=== PATIENT | female | born 1965 | race Caucasian/White ===

== ENCOUNTER 2017-06-23 13:34 | Inpatient (IN) | payer OTHER, MEDICAID ==
[~2017-06-23] VITALS: Ht 167.6 cm; Wt 114.4 kg
[~2017-06-23 13:34] MED LIST: ABILIFY20 MG PO; ABILIFY30 MG PO; ALBUTEROL2.5 MG/0.1 INH; ALLEGRA ALLERGY60 MG PO; ASPIRIN EC325 M1 PO; ASPIRIN EC81 M1 PO; ATIVAN0.5 M1 PO; AUGMENTIN; AZO95 MG PO; BACLOFEN 10MG T10 MG PO; BACLOFEN20 MG PO; BACTROBAN CREAM30 G1 TOP; BUTRANS1 EAC1 TOP; BUTRANS1 EAC1 TRANSDERM; CELEXA 20 MG TA20 M1 PO; CENTRUM ADULTS1 EACH PO; CIPROFLOXACIN500 M1 PO; CLARITIN10 M2 PO; CLEOCIN HCL150 MG PO; CLEOCIN HCL300 MG PO; CLONAZEPAM 0.50.5 M1 PO; CYMBALTA20 MG PO; CYMBALTA60 MG PO; ENDOCET 5-3251 EACH PO; EPIPEN 2-P0.3 MG/0.3 IM; EPIPEN0.3 MG/0.3 IM; FENTANYL PA25 MCG/HR TRANSDERM; FLEXERIL PO; FLOMAX0.4 MG PO; FLONASE 0.05%50 MCG NS; FLOVENT HFA 2220 MC1; FLOVENT HFA 2220 MCG INH; HYDROCHLOROTHIA25 M1 PO; HYDROCODON-ACE1 EAC7 PO; HYDROCODONE-AP1 EAC6 PO; INVEGA SUS234 MG/1.5 IM; INVEGA6 MG PO; INVEGA9 MG IM; IPRATROPIUM SPRAY; KEFLEX250 M1 PO; KEPPRA 500 MG500 M1 PO; KLONOPIN0.5 MG PO; LEVAQUIN 500 M500 M2 PO; LEVO-T50 MCG PO; LIDODERM 5%1 PATCH TOP; LINZESS145 MCG PO; LIORESAL 10 MG10 MG PO; LISINOPRIL-HCT1 EACH PO; LISINOPRIL10 MG PO; LYRICA PO; LYRICA100 MG PO; LYRICA150 MG PO; LYRICA225 MG PO; MEDROLDOSEPACK PO; MOBIC15 MG PO; MODAFINIL100 MG PO; Metformin PO; NEURONTIN800 MG PO; NORCO 10-325 T1 EACH PO; NORCO 5-325 TA1 EACH PO; NORCO 7.5-3251 EACH; NORFLEX100 MG PO; NORVASC10 MG PO; NORVASC2.5 MG PO; NUVIGIL150 MG PO; NUVIGIL50 MG PO; OXYCODONE HCL15 MG PO; PERCOCET 10-321 EACH PO; PERCOCET 5-3251 EACH PO; PREDNISONE50 MG PO; PREMARIN1.25 MG PO; PRIMROSE PO; PRINIVIL5 MG PO; PROVIGIL 200 M200 M1 PO; PYRIDIUM200 MG PO; ROBAXIN 750 MG750 M1 PO; SEROQUEL XR 20200 MG PO; SEROQUEL XR PO; SIMVASTATIN40 MG PO; TESSALON200 MG PO; TINIDAZOLE500 MG PO; TOPAMAX 100 MG100 MG PO; TOPROL XL25 MG PO; TOPROL XL50 MG PO; TRAMADOL 50 MG50 MG PO; ULTRAM 50MG TAB50 MG PO; VALIUM10 MG PO; VICODIN 5-5001 EACH PO; XALATAN2.5 ML OPHTHALMIC; XANAX 0.5 MG0.5 M1 PO; ZANAFLEX4 M1 PO; ZANAFLEX4 MG PO; ZESTRIL PO; ZESTRIL10 MG PO; ZOCOR40 MG PO; ZOFRAN ODT4 MG SUBLING; ZOFRAN4 MG PO; ZYRTEC10 M2 PO; [UNRECOGNIZED DRUG - OTHER] PO; [UNRECOGNIZED DRUG - REMARK] TOP; metformin
[2017-06-23 13:37] VITALS: BP 148/67
[2017-06-23 13:47] LABS: BE -6.6 mmol/L (-2 to +3); HCO3 20.8 mmol/L (22.0-26.0); PCO2 48.3 mmHg (35.0-45.0)
[2017-06-23 13:50] LABS: PO2 447.9 mmHg (75.0-100.0); pH 7.252 (7.340-7.450)
[2017-06-23] MEDS ORDERED: KEPPRA 500 MG500 M1 PO (13:58)
[2017-06-23] MEDS ORDERED: MAGOX 400400 MG PO (13:58)
[2017-06-23] MEDS ORDERED: ALLEGRA ALLERG180 MG PO (13:59)
[2017-06-23] MEDS ORDERED: ARTIFICIAL TEA1 EACH OPHTHALMIC (14:00)
[2017-06-23] MEDS ORDERED: CYMBALTA30 MG PO (14:00)
[2017-06-23] MEDS ORDERED: ASPIR 8181 MG PO (14:00)
[2017-06-23] MEDS ORDERED: COLESTIPOL HCL1 G1 PO (14:01)
[2017-06-23] MEDS ORDERED: OMEGA-31000 M1 PO (14:01)
[2017-06-23 14:06] LABS: MCH 30.1 pg (26.0-34.0); MCHC 32.6 g/dL (28.0-37.0); MCV 92.4 fL (80.0-100.0); MPV 8.8 fl. (7.2-11.1); NUCLEATED RBCS 0 /100WBC; PLATELET COUNT* 187 thou/uL (150-400); RBC 4.65 mil/uL (4.20-5.00); RDW-CV 15.3 % (10.5-14.5); WBC 11.8 thou/uL (4.0-11.0)
[2017-06-23 14:19] LABS: ANION GAP 13 mmol/L (7-16); BUN 39 mg/dL (7-18); CALCIUM 8.7 mg/dL (8.5-10.1); CHLORIDE 109 mmol/L (98-107); CO2 23 mmol/L (21-32); CREATININE 3.9 mg/dL (0.6-1.3); GLUCOSE 110 mg/dL (70-99); POTASSIUM 4.3 mmol/L (3.5-5.1); SODIUM 145 mmol/L (136-145)
[2017-06-23 14:24] LABS: APTT 24.7 Seconds (25.0-31.3); INR 1.1; PROTIME 10.6 Seconds (9.20-11.50)
[2017-06-23 14:38] LABS: ALBUMIN 3.6 g/dL (3.4-5.0); ALKALINE PHOSPHATASE 151 U/L (46-116); CK-MB MASS 8.3 ng/mL (<0.5-3.6); NT-PRO BRAIN NAT PEPTIDE 97 pg/mL (<300); SGOT 40 U/L (15-37); SGPT 30 U/L (30-65); TOTAL BILIRUBIN 0.3 mg/dL (<0.1-1.0); TOTAL PROTEIN 7.6 g/dL (6.4-8.2); TROPONIN-I LEVEL <0.06 ng/mL (<0.06)
[2017-06-23 14:48] LABS: ABSOLUTE EOSINOPHILS 0.1 thou/uL (0.0-0.7); ABSOLUTE LYMPHOCYTES 1.4 thou/uL (0.8-5.3); ABSOLUTE MONOCYTES 1.1 thou/uL (0.0-1.2); ABSOLUTE NEUTROPHILS 9.2 thou/uL (1.6-8.1); HYPOCHROMASIA 1+; PLATELET ESTIMATE DECREASED
--- NOTE | 2017-06-23 15:00 | NUR ---
PT VERSED WAS INCREASED TO 2MG/HR
[2017-06-23 15:03] LABS: URINE BILIRUBIN NEGATIVE (Negative); URINE BLOOD TRACE (Negative); URINE CLARITY CLEAR; URINE COLOR YELLOW; URINE GLUCOSE-RANDOM NEGATIVE (Negative); URINE KETONES NEGATIVE (Negative); URINE LEUKOCYTES-REFLEX NEGATIVE (Negative); URINE NITRITE-REFLEX NEGATIVE (Negative); URINE PROTEIN 1+ (Negative); URINE SPECIFIC GRAVITY 1.025 (1.005-1.030); URINE UROBILINOGEN 0.2 E.U./dl (0.2-1.0)
--- NOTE | 2017-06-23 15:25 | NUR ---
PT VERSED WAS INCREASED TO 3MG/HR
[2017-06-23 15:41] LABS: AMP/METHAMP Negative (Negative); BARBITURATES Negative (Negative); BENZODIAZEPINES Negative (Negative); COCAINE Negative (Negative); METHADONE Negative (Negative); OPIATES Negative (Negative); PCP Negative (Negative); THC Negative (Negative)
[2017-06-23 16:00] VITALS: BP 153/81
--- NOTE | 2017-06-23 16:17 | NUR ---
VERSED WAS INCREASED TO 2MG/HR
[2017-06-23 16:31] VITALS: BP 138/75
[2017-06-23 18:00] VITALS: BP 137/76
--- NOTE | 2017-06-23 18:14 | NUR ---
PT ADMITTED FROM ED. FAMILY NOT PRESENT AT ADMISSION. NOW HERE. REPORTS PT HAD NOT BEEN ACTING LIKE SELF FOR TWO DAYS, AND SAID SHE DIDN'T FEEL GOOD. PT WAS STARTED ON NEW BLOOD PRESSURE MED YESTERDAY - UNSURE WHAT NAME OF MED IS. ALSO SAID PT SPEECH WAS SLURRED FOR MOST OF DAY YESTERDAY AND TODAY. HEARD PT FALL TO FLOOR AT HOME AND FOUND PT SITTING UP ON FLOOR SHAKING. PT COULD BARELY SPEAK AND UNABLE TO FOLLOW COMMANDS. CALLED EMS. PT UNRESPONSIVE ON ARRIVAL TO ED. PT INTUBATED, L IJ TRIPLE LUMEN CENTRAL LINE. PT APPEARS COMFORTABLE CURRENTLY, VERSED GTT AT 5MG/HR, FENTANYL GTT @ 25MCG/HR, NS AT 100ML/HR. TEMP PROBE TRACY TO DD WITH YELLOW CLOUDY URINE. OGT LIS.
--- NOTE | 2017-06-23 20:43 | NUR ---
PT REMAINS ON VENTILATOR, NPO, SPOKE WTIH DR SINCLAIR VIA TELEPHONE KEPPRA PO SCHEDULED CLARIFICATION ORDER, NEW ORDERS RECEIVED TO CHANGE SCHEDULED KEPPRA 500MG PO BID TO IV WITH SAME DOSE AND SCHEDULED TIMES.
[2017-06-23 21:32] VITALS: BP 154/74
--- NOTE | 2017-06-23 23:35 | NUR ---
OG AT 45CM, NO AIR POP NOTED, REPOSITIONED, STAT KUB OBTAINED, KUB RESULTS-TIP OF OG IN GASTRIC ANTUM, STARTED LIS.
[2017-06-24] VITALS (16 sets, daily range): BP systolic 94–167; BP diastolic 44–78
[2017-06-24 04:38] LABS: ABSOLUTE LYMPHOCYTES 0.5 thou/uL (0.8-5.3); ABSOLUTE MONOCYTES 0.4 thou/uL (0.0-1.2); ABSOLUTE NEUTROPHILS 7.4 thou/uL (1.6-8.1); BASOPHILS 0.2 %; HEMATOCRIT 38.5 % (37.0-47.0); HEMOGLOBIN 12.7 gm/dL (12.0-15.0); LYMPHOCYTES 5.9 %; MCH 30.6 pg (26.0-34.0); MCHC 32.9 g/dL (28.0-37.0); MCV 92.8 fL (80.0-100.0); MONOCYTES 4.5 %; MPV 8.5 fl. (7.2-11.1); NUCLEATED RBCS 0 /100WBC; PLATELET COUNT* 164 thou/uL (150-400); POLYS 89.4 %; RBC 4.15 mil/uL (4.20-5.00); RDW-CV 15.6 % (10.5-14.5); WBC 8.3 thou/uL (4.0-11.0)
[2017-06-24 05:02] LABS: CREATININE 4.7 mg/dL (0.6-1.3); POTASSIUM 4.5 mmol/L (3.5-5.1)
--- NOTE | 2017-06-24 08:30 | NUR ---
ASSUMED CARE OF PATIENT AT 0715. PATIENT IS ON VENTILATOR, FENTANYL AND VERSED GTTS. PATIENT IS NOT MAKING MUCH RESPONSE, DECREASING SEDATION AT THIS TIME. AT BEDSIDE AND WANTS TO SPEAK WITH ALL DOCTORS TODAY. NO APPARENT PAIN, GOALS ARE PAIN CONTROL, Q2H TURNS FOR SKIN INTEGRITY, MAINTAIN SATS ABOVE 92%. BED IN LOWEST POSITION, CALL LIGHT IN REACH, INSURANCE MARKETING SPECIALIST IN PLACE.
[2017-06-24 09:23] LABS: BE -9.6 mmol/L (-2 to +3); HCO3 15.6 mmol/L (22.0-26.0); PCO2 32.5 mmHg (35.0-45.0); PO2 93.4 mmHg (75.0-100.0)
--- NOTE | 2017-06-24 09:36 | EKG ---
[place] [address] ELECTROCARDIOGRAM REPORT Name: GORDON RAMIREZSA FARMER Room: [address] ADM IN M.R.#: [id number] Admission: 06/23/17 Attend Phys: Mikael Guerin MD Discharge: Date of : 63 Report #: [id number] THIS REPORT FOR: //name// [facility] ED Test Date: 2017-06-23 Test Time: 14:57:12 Pat Name: DION RAMIREZ Department: Room: [facility] Gender: F Offset Second Press Operator: MAXIMINO Hollis : 1965 Requested By: Devendra Shah Order Number: [id number] MD: Sheldon Hull Measurements Intervals [place] Rate: 75 P: 50 ND: 149 QRS: 69 QRSD: 107 T: 66 QT: 426 QTc: 476 Interpretive Statements Sinus rhythm Probable left atrial enlargement Nonspecific T abnormalities, lateral leads Borderline prolonged QT interval Compared to ECG 11/27/2016 13:11:04 T-wave abnormality now present Electronically Signed On 06-24-2017 9:36:43 CDT by Sheldon Hull [email or web address] <ELECTRONICALLY SIGNED> By: Sheldon Hull MD, FAC 06/24/17 0936 1457 1457 Sheldon Hull MD, [facility] /EPI
--- NOTE | 2017-06-24 09:46 | CON ---
[address] [address] CONSULTATION Name: DION RAMIREZ Room: [address] IN M.R.#: [id number] Admission: 06/23/17 Attend Phys: Mikael Guerin MD Discharge: Date of : 63 Report #: [id number] THIS REPORT FOR: //name// CC: Mikael Hadley HISTORY OF PRESENT ILLNESS: The patient was intubated and sedated at the time of my evaluation. She is a 52-year-old female patient who was found unresponsive at home. Her was at the bedside and he provided part of the history. I reviewed the medical record. He reported that earlier in the week, she had high blood pressure. She has taken blood pressure medication. The second day, her blood pressure was low, although she was not feeling dizzy, but she had some tiredness and fatigue. Yesterday, he found her unresponsive and gurgling at home, brought in by EMS. It was felt that she has some twitching movements suggestive of seizure. Apparently, they tried her on nonrebreather, but she was nonresponsive and she was intubated. When I saw her today, she was on Versed and fentanyl. She did not get the sedation vacation yet. Reviewing her medical record, she had reported history of seizures in the past. Her reported that she smoked in the past, but she quit 11 years ago. She has some inhaler that she uses on and off at home, but she is not on any oxygen and she does not carry a diagnosis of lung disease. The RT today reported some increasing secretions. PAST MEDICAL HISTORY: History of hypertension, hyperlipidemia, anxiety, depression, fibromyalgia, herniated disk, history of knee infection, history of schizophrenia, seizures. PAST SURGICAL HISTORY: Include surgery in the right foot, bilateral knee surgery, hysterectomy, sinus surgery, appendectomy, gallbladder surgery. FAMILY HISTORY: Noncontributory. SOCIAL HISTORY: Ex-smoker, quit 11 years ago. Does not drink alcohol excessively, does not abuse drugs. Lives with her . HOME MEDICATIONS: She is on Keppra, magnesium supplement, aspirin, Cymbalta, artificial tears. She has EpiPen at home. She is on albuterol inhaler. She is on levothyroxine, Topamax, baclofen. REVIEW OF SYSTEMS: At this point, unobtainable due to the patient's condition. PHYSICAL EXAMINATION: VITAL SIGNS: On examination, she is on the vent, O2 saturation more than 90%, blood pressure of 137/76, pulse of 81, temperature 37.4. GENERAL: Overweight lady, intubated, on sedation, looking comfortable, [place] [address] CONSULTATION Name: DION RAMIREZ Room: [address] IN .R.#: [id number] Admission: 06/23/17 Attend Phys: Mikael Guerin MD Discharge: Date of : 63 Report #: [id number] HEENT: Head normocephalic, atraumatic. Pupils reactive to light. Extraocular movements intact. External ear looks okay and normal. ORAL CAVITY: Moist mucous membrane with ET tube in place. NECK: Supple. No palpable lymph node. CHEST: Good air movement heard bilaterally. No added sounds. HEART: S1, S2; no murmur. ABDOMEN: Benign, soft, lax, nontender, positive bowel sounds. No masses felt. EXTREMITIES: Lower extremity: No edema, no calf tenderness. SKIN: Normal for age and race, no rash. PSYCHIATRIC: Mood and affect could not be evaluated. NEUROLOGIC: She is on sedation, could not be evaluated. LABORATORY DATA: Her ABGs prior to intubation, 7.25/48/447 on 15 liters; however, we are getting followup ABGs. Her white blood count is 8.3, hemoglobin of 12.7, platelet of 164. INR of 1.1, creatinine of 4.7, potassium 4.5, BUN of 42. Sodium 146. BNP was not elevated. She had multiple imaging including CT scan of the head that did not show acute pathology. Her chest x-ray overall did not show infiltrate and consolidation, with ET tube and central line in place. IMPRESSION: 1. Acute respiratory failure. 2. Encephalopathy, intubated for airway protection. 3. Possible seizures. 4. History of seizure disorder. 5. Acute renal failure, possible chronic renal failure. 6. Questionable aspiration. PLAN: At this point, her chest x-ray is clear. We will need to follow her chest x-ray while she is intubated. We will do followup ABG today and adjust the vent accordingly. She is on assist control ventilation but the tidal volume was noted to be high, she is on scheduled nebulization treatment and she is on steroids, in a day or 2 we will start weaning the steroids down. Awaiting Neurology evaluation. Once her mental status is better, we will start the weaning process. Thank you for the consult. <ELECTRONICALLY SIGNED> By: Pritesh Lam MD 06/24/17 0946 0858 [id number] aLm MD /christine
--- NOTE | 2017-06-24 18:41 | NUR ---
PATIENT HAS SOMEWHAT PROGRESSED WELL TOWARDS GOALS. UNABLE TO DO SEDATION VACATION TODAY, DECREASED SEDATION AND PATIENT WAS VERY RESTLESS AND HEART RATE JUMPED. WILL BE BACK IN THE MORNING, HAS BEEN AT BEDSIDE MOST OF THE DAY. DOCTORS UPDATED . PATIENTS NURSE PRACTIONER CALLED AND SAID THAT SHE HAS BEEN TAKING OVER THE COUNTER DIET PILLS, CLAIMS SHE IS TAKING FENTRAMINE, BUT THAT IS NOT AN OVER THE COUNTER MED. UNSURE WHAT DIET PILLS SHE IS TAKING OR IF THAT IS WHAT CAUSED THE REACTION. SHE ALSO STARTED TAKING LISINOPRIL HCTZ DIRECTED FOR 2 DOSES AND DROPPED HER PRESSURE SIGNIFICANTLY. UNSURE IF KNOWS ABOUT DIET PILLS. BED IN LOWEST POSITION, MOTOR VEHICLE DISPATCHER IN PLACE. BED ALARM ON.
[2017-06-25] VITALS (19 sets, daily range): BP systolic 102–153; BP diastolic 46–76
[2017-06-25 04:48] LABS: HEMATOCRIT 37.4 % (37.0-47.0); HEMOGLOBIN 12.4 gm/dL (12.0-15.0); MCH 30.8 pg (26.0-34.0); MCHC 33.1 g/dL (28.0-37.0); MCV 93.1 fL (80.0-100.0); MPV 9.2 fl. (7.2-11.1); RBC 4.02 mil/uL (4.20-5.00); RDW-CV 15.4 % (10.5-14.5); WBC 10.8 thou/uL (4.0-11.0)
[2017-06-25 04:53] LABS: ALBUMIN 2.8 g/dL (3.4-5.0); CALCIUM 8.1 mg/dL (8.5-10.1); POTASSIUM 4.6 mmol/L (3.5-5.1); TOTAL BILIRUBIN 0.2 mg/dL (<0.1-1.0); TOTAL PROTEIN 6.7 g/dL (6.4-8.2)
[2017-06-25 05:31] LABS: CREATININE 5.8 mg/dL (0.6-1.3)
--- NOTE | 2017-06-25 06:57 | NUR ---
PROGESSING TOWARD GOALS. PT REMAINS STABLE ON VENTILATOR, SEDATION TITRATED DOWN IN PREPARATION FOR WEANING TRIAL THIS AM. PT IS AROUSABLE TO VERBAL STIMULI. VSS. COMPLETE BED BATH GIVEN, HAIR SHAMPOOED AND BRAIDED. PT HAS BEEN TURNED Q2HR THROUGHOUT THE SHIFT.
[2017-06-25 08:58] LABS: BE -8.8 mmol/L (-2 to +3); HCO3 17.2 mmol/L (22.0-26.0); PCO2 37.6 mmHg (35.0-45.0); PO2 105.3 mmHg (75.0-100.0)
[2017-06-25 08:59] LABS: pH 7.279 (7.340-7.450)
--- NOTE | 2017-06-25 10:00 | NUR ---
PT TOLERATED TUBE TRIAL WELL, PER PULMONARY DR TAMAYO WILL TUBE TRIAL IN AM DUE TO INCREASING RENAL LABS.
[2017-06-25 11:34] LABS: URINE BILIRUBIN NEGATIVE (Negative); URINE BLOOD 1+ (Negative); URINE CLARITY CLEAR; URINE COLOR STRAW; URINE GLUCOSE-RANDOM NEGATIVE (Negative); URINE KETONES NEGATIVE (Negative); URINE LEUKOCYTES-REFLEX NEGATIVE (Negative); URINE NITRITE-REFLEX NEGATIVE (Negative); URINE PROTEIN NEGATIVE (Negative); URINE UROBILINOGEN 0.2 E.U./dl (0.2-1.0)
[2017-06-25 11:40] LABS: AMORPHOUS URATES Few /LPF (None Seen); BACTERIA-REFLEX None Seen /HPF (None Seen); CASTS None Seen /LPF (None Seen); SQUAMOUS NONE SEEN /LPF (0-3); URINE RBC 0-2 Rare /HPF (0-2); URINE WBC-REFLEX 0-5 Rare /HPF (0-5)
--- NOTE | 2017-06-25 12:36 | NUR ---
PT ADMITTED 06/23, INTUBATED IN THE E.D. SPOKE WITH YESTERDAY. PT NORMALLY IS ACTIVE AND INDEP, DRIVING, HELPING WITH THE GRANDCHILDREN. DIEGOD HAS NO QUESTIONS ABOUT PLAN OF CARE. NO WEANING TRIAL TODAY PER NURSING. AWARE AND HAS NO QUESTIONS ABOUT PLAN OF CARE.
--- NOTE | 2017-06-25 18:53 | NUR ---
PT IS PROGRESSING TOWARDS GOALS. PT URNED THROUGH SHIFT. FENTANYL AND VERSED GTTS REMAIN IN USE.AM SHIFT REPORT TO BE GIVEN.
[2017-06-26] VITALS (23 sets, daily range): BP systolic 114–180; BP diastolic 57–95
[2017-06-26 03:48] LABS: ABSOLUTE LYMPHOCYTES 0.4 thou/uL (0.8-5.3); ABSOLUTE MONOCYTES 0.4 thou/uL (0.0-1.2); ABSOLUTE NEUTROPHILS 7.2 thou/uL (1.6-8.1); BASOPHILS 0.5 %; HEMATOCRIT 35.6 % (37.0-47.0); HEMOGLOBIN 11.7 gm/dL (12.0-15.0); LYMPHOCYTES 5.5 %; MCH 30.3 pg (26.0-34.0); MCHC 32.9 g/dL (28.0-37.0); MCV 91.9 fL (80.0-100.0); MONOCYTES 4.5 %; MPV 8.5 fl. (7.2-11.1); NUCLEATED RBCS 0 /100WBC; PLATELET COUNT* 154 thou/uL (150-400); POLYS 89.5 %; RBC 3.87 mil/uL (4.20-5.00); RDW-CV 15.3 % (10.5-14.5)
[2017-06-26 04:11] LABS: CALCIUM 7.7 mg/dL (8.5-10.1); CREATININE 5.7 mg/dL (0.6-1.3); MAGNESIUM 1.8 mg/dL (1.8-2.4); PHOSPHORUS* 7.2 mg/dL (2.5-4.9); POTASSIUM 4.3 mmol/L (3.5-5.1)
[2017-06-26 04:12] LABS: PREALBUMIN 20.5 mg/dL (18.0-35.7)
--- NOTE | 2017-06-26 06:49 | NUR ---
PT REMAINS STABLE ON VENTILATOR. VERSED GTT TITRATED OFF AND FENTANYL TITRATED DOWN AT 0530 IN PREPARATION FOR WEANING TRIAL SCHEDULED FOR 0800. PT IS NOW EASILY AROUSABLE AND MAKES ATTEMPTS TO MOUTH WORDS IN RESPONSE TO BEING SPOKEN TO, FOLLOWS COMMANDS. IVF INFUSING ORDERED. COMPLETE BED BATH GIVEN, SKIN INTACT WITH NO REDNESS NOTED TO COCCYX OR OTHER BONY PROMINANCES. PT HAS BEEN TURNED Q2HR THROUGHOUT THE SHIFT.
[2017-06-26 09:23] LABS: BE -4.8 mmol/L (-2 to +3); HCO3 19.9 mmol/L (22.0-26.0); PCO2 35.7 mmHg (35.0-45.0); pH 7.363 (7.340-7.450)
--- NOTE | 2017-06-26 10:00 | NUR ---
PATIENT PASSED WEANING TRIAL. EXTUBATED AT [address] RIZVI PRESENT. POST EXTUBATION ABG ORDERED FOR 1100. PATIENT ENCOURAGED TO COUGH AND DEEP BREATHE. FAIR COUGH WITH NO PRODUCTION AT THIS TIME. SPUTUM SAMPLE TAKEN AND SENT PRIOR TO EXTUBATION. CURRENTLY ON 3L O2. CLEAR/DIMINISHED BREATH SOUNDS. AT BEDSIDE, ATTEMPTING TO HELP OXYACETYLENE WELDER HER TO COUGH AND DEEP BREATHE WELL NURSING.
[2017-06-26 11:31] LABS: BE -6.5 mmol/L (-2 to +3); HCO3 18.5 mmol/L (22.0-26.0); PCO2 35.5 mmHg (35.0-45.0); pH 7.335 (7.340-7.450)
--- NOTE | 2017-06-26 11:49 | NUR ---
POST EXTUBATION ABG CALLED TO DR. RIZVI. TITRATED O2 DOWN TO 2L NC. WHEN PATIENT IS MORE ALERT, ORDERS ARE IN TO START INCENTIVE SPIROMETRY. UPDATED ON THIS.
--- NOTE | 2017-06-26 15:30 | NUR ---
PATIENT'S BROUGHT IN OWN HOME BIPAP, BUT IS GOING TO RUN HOME LATER TO GET ADHESIVE STRIPS FOR HER DENTURES SO SHE CAN WEAR THEM WITH THE BIPAP. TAMEKA IN RT NOTIFIED TO CHECK BIPAP.
--- NOTE | 2017-06-26 17:28 | NUR ---
PATIENT PROGRESSING TOWARDS GOALS. REMAINS EXTUBATED. 95% ON 2L NC AT THIS TIME. PRN HYDRALAZINE GIVEN ONCE FOR SYSTOLIC 180 AND HAS REMAINED IN 150S THROUGHOUT REST OF SHIFT. DENIES PAIN. STILL REMAINS SLIGHTLY CONFUSED. CAN STATE NAME, , AND IMMEDIATE NEEDS. BUT ALSO MAKES INAPPROPRIATE COMMENTS LIKE "HOW WILL MY KNOW THAT I AM HERE?" WHEN HAS BEEN HERE ALL DAY WITH HER. URINE OUTPUT NORMALIZING. OVER 2 LITERS OUT THIS SHIFT. REFER TO CHARTING. FLUIDS CHANGED TO NS @ 75 ML/HR BY NEPHROLOGY. ALLOWING REST AT THIS TIME, VITALS WNL.
[2017-06-27] VITALS (10 sets, daily range): BP systolic 115–166; BP diastolic 51–89
--- NOTE | 2017-06-27 06:53 | NUR ---
PROGRESSING TOWARD GOALS. PT IS DROWSY, ORIENTED TO PERSON AND TIME ONLY AND CAN CARRY SIMPLE CONVERSATION. HOME BIPAP WORN AT HS, 2L O2 PER NC WHILE AWAKE. O2 SAT REMAINED >92%. VSS. PT HAS BEEN TURNED Q2HR THROUGHOUT THE SHIFT. CALL LIGHT WITHIN REACH.
[2017-06-27 08:09] LABS: HEMATOCRIT 38.2 % (37.0-47.0); HEMOGLOBIN 12.6 gm/dL (12.0-15.0); MCH 29.9 pg (26.0-34.0); MCHC 32.9 g/dL (28.0-37.0); MCV 91.1 fL (80.0-100.0); MPV 9.9 fl. (7.2-11.1); NUCLEATED RBCS 0 /100WBC; PLATELET COUNT* 185 thou/uL (150-400); RDW-CV 15.7 % (10.5-14.5); WBC 9.8 thou/uL (4.0-11.0)
[2017-06-27 08:14] LABS: CALCIUM 8.3 mg/dL (8.5-10.1); POTASSIUM 4.2 mmol/L (3.5-5.1)
[2017-06-27 08:15] LABS: CREATININE 4.5 mg/dL (0.6-1.3)
[2017-06-27 08:24] LABS: ALBUMIN 2.8 g/dL (3.4-5.0); CALCIUM 8.1 mg/dL (8.5-10.1); CREATININE 4.6 mg/dL (0.6-1.3); MAGNESIUM 1.9 mg/dL (1.8-2.4); PHOSPHORUS* 6.7 mg/dL (2.5-4.9); POTASSIUM 4.3 mmol/L (3.5-5.1)
[2017-06-27 08:40] LABS: ABSOLUTE LYMPHOCYTES 0.7 thou/uL (0.8-5.3); ABSOLUTE MONOCYTES 0.7 thou/uL (0.0-1.2); ABSOLUTE NEUTROPHILS 8.4 thou/uL (1.6-8.1); PLATELET ESTIMATE ADEQUATE
[2017-06-27 08:41] LABS: ANISOCYTOSIS Occasional
--- NOTE | 2017-06-27 09:03 | NUR ---
BEDSIDE SWALLOW COMPLETED, PATIENT TOLERATED EXCELLENTLY. PLACED ON CLEAR LIQUIDS PER DR SINCLAIR. DOWNGRADED TO M/S TELE.
--- NOTE | 2017-06-27 09:53 | NUR ---
PATIENT TRANSFERED TO ROOM 311 AT 0945. PATIENT REMAINS VERY LETHARGIC, BUT WAS UP MOST OF THE NIGHT. VITALS WNL. TRACING NSR ON CHANGE NUMBER OPERATOR. REPORT GIVEN TO CHEL SORIA. ALL QUESTIONS ANSWERED.
--- NOTE | 2017-06-27 16:28 | NUR ---
PATIENT A&OX4, FORGETFUL AT TIMES. LETHARGIC, AND SLOW WITH RESPONSES. ON 2L O2 VIA NC, LEFT IJ TRIPPLE LUMEN FLUIDS INFUSSING. INCREASED WEAKNESS, WORKING WITH PT AND OT, USING BEDPAN AT THIS TIME. C/O HEADACHE, PARTIAL RELIEF WITH MEDICATION. TOLLERATING CLEAR LIQUID DEIT. ONE OF PATIENT RINGS HAD TO BE MANUALY CUT OF LEFT HAND, RING AT BEDSIDE. NO OTHER CONCERNS AT THIS TIME. APPORPRIATE AND COOPORATIVE WITH CARE.
[2017-06-28 04:28] VITALS: BP 141/72
--- NOTE | 2017-06-28 06:32 | NUR ---
PATIENT SLEPT MOST OF THE NIGHT. PATIENT REFUSED TO TURN. TRACY REMAINS TO DEPENDENT DRAIN. PATIENT HAD NO COMPLAINTS OF PAIN. WILL CONTINUE OT MONITOR.
[2017-06-28 07:06] LABS: ALBUMIN 2.7 g/dL (3.4-5.0); CALCIUM 8.5 mg/dL (8.5-10.1); MAGNESIUM 1.8 mg/dL (1.8-2.4); PHOSPHORUS* 5.6 mg/dL (2.5-4.9); POTASSIUM 4.1 mmol/L (3.5-5.1)
[2017-06-28 07:09] LABS: CREATININE 3.3 mg/dL (0.6-1.3)
[2017-06-28 08:00] VITALS: BP 156/71
[2017-06-28 12:00] VITALS: BP 170/80
[2017-06-28 16:00] VITALS: BP 158/71
--- NOTE | 2017-06-28 16:16 | NUR ---
SW met with pt to discuss dc planning as Doctor had mentioned to SW about possible placment options. Pt expressed pt plan to return home with and would prefer HH services; pt has used [facility] in the past and [facility] would be pt preference. SW to continue to follow to assist with safe dc planning.
--- NOTE | 2017-06-28 18:54 | NUR ---
ASSUMED CARE THIS AM. PATIENT HAD FOUR BOWEL MOVEMENTS THIS SHIFT, REPORTS FEELING MUCH BETTER. UP WITH STANDBY ASSIST TO COMMODE AND CHAIR FOR MEALS. VERBAL CONTRACT MADE FOR CATHETER TO BE REMOVED "FIRST THING IN THE MORNING" PATIENT FEARS "HAVING TO GET UP EVERY 10 MINUTES" THROUGHOUT THE NIGHT. ANTICIPATE DISCHARGE WITHIN THE NEXT TWO DAYS. PROGRESSING TOWARD GOALS, CALL LIGHT IN REACH, CONT POC.
[2017-06-28 20:00] VITALS: BP 160/66
[2017-06-29] VITALS (7 sets, daily range): BP systolic 146–179; BP diastolic 57–97
[2017-06-29 04:51] LABS: ABSOLUTE BASOPHILS 0.1 thou/uL (0.0-0.2); ABSOLUTE LYMPHOCYTES 1.9 thou/uL (0.8-5.3); ABSOLUTE MONOCYTES 0.9 thou/uL (0.0-1.2); ABSOLUTE NEUTROPHILS 5.5 thou/uL (1.6-8.1); BASOPHILS 0.7 %; EOSINOPHILS 0.6 %; HEMATOCRIT 37.8 % (37.0-47.0); HEMOGLOBIN 12.6 gm/dL (12.0-15.0); LYMPHOCYTES 22.9 %; MCH 30.4 pg (26.0-34.0); MCHC 33.4 g/dL (28.0-37.0); MCV 90.9 fL (80.0-100.0); MONOCYTES 10.9 %; MPV 9.5 fl. (7.2-11.1); NUCLEATED RBCS 0 /100WBC; PLATELET COUNT* 172 thou/uL (150-400); POLYS 64.9 %; RBC 4.16 mil/uL (4.20-5.00); RDW-CV 15.4 % (10.5-14.5); WBC 8.5 thou/uL (4.0-11.0)
[2017-06-29 05:00] LABS: ALBUMIN 2.8 g/dL (3.4-5.0); POTASSIUM 3.2 mmol/L (3.5-5.1); TOTAL BILIRUBIN 0.3 mg/dL (<0.1-1.0); TOTAL PROTEIN 6.5 g/dL (6.4-8.2)
[2017-06-29 05:02] LABS: PREALBUMIN 29.1 mg/dL (18.0-35.7)
[2017-06-29 05:09] LABS: CREATININE 2.3 mg/dL (0.6-1.3)
--- NOTE | 2017-06-29 06:15 | NUR ---
PT SLEPT MOST OF SHIFT. ASSESSMENT DOCUMENTED. MEDS GIVEN PER E-MAR. IJ PATENT, FLUIDS INFUISNG. TYLENOL GIVEN PER E-MAR FOR BACK PAIN. WILL CONTINUE WITH PLAN OF CARE.
--- NOTE | 2017-06-29 14:22 | NUR ---
STUDENT CHARTING REVIEWED BY Stephane OCHOA RN MSN.
--- NOTE | 2017-06-29 18:22 | NUR ---
RESUMED CARE THIS AM. A/O X 4, UP WITH STANDBY ASSIST, SEIZURE PRECAUTIONS CONTINUE. RENNY MEDS AND CARES, CONT ISOLATION FOR PENDING C.DIFF. TRIPLE LUMEN CENTRAL LINE REMOVED WITHOUT INCIDENT, PRESSSURE APPLIED WITH OCCLUSIVE DRESSING. 22G PLACED X 1 ATTEMPT TO RIGHT FA, SL. RENNY USE OF COMMODE FOR BOWEL/BLADDER, RENNY DIET WELL, POTASSIUM GIVEN PER PROTOCOL. CALL LIGHT IN REACH, PROGRESSING WELL TOWARD GOALS.
[2017-06-30] VITALS (7 sets, daily range): BP systolic 140–170; BP diastolic 59–78
--- NOTE | 2017-06-30 05:59 | NUR ---
ASSESSMENT COMPLETE. PT SLEPT PART OF THE NIGHT. PT UP MULTIPLE TIMES TO BSC. PT HAS 2 EPISODES OF LOOSE STOOLS. CDIFF CAME BACK NEGATIVE. PT IS ON ROOM AIR WITH ADEQAUTE SATS. PT GIVEN TYLENOL FOR BACK PAIN. PT IS UP ONE ASSIST TO BSC. PT IS FALL RISK, BED ALARM ON. PT HAS IV IN RIGHT FOREARM, SALINE LOCKED. PT TURNS SELF IN BED DURING THE NIGHT. SEE ASSESSMENT AND VITALS FOR OTHER DETAILS. CALL LIGHT WITHIN REACH, WILL CONTINUE PLAN OF CARE
--- NOTE | 2017-06-30 06:02 | NUR ---
PT ON TELE MONITOR. PT HAD SOME TIME PERIODS OF BRADYCARDIA, DOWN TO 45. WILL CONTINUE TO MONITOR
[2017-06-30 10:58] LABS: HEMATOCRIT 40.4 % (37.0-47.0); HEMOGLOBIN 13.2 gm/dL (12.0-15.0); MCH 30.3 pg (26.0-34.0); MCHC 32.7 g/dL (28.0-37.0); MCV 92.9 fL (80.0-100.0); MPV 11.7 fl. (7.2-11.1); NUCLEATED RBCS 0 /100WBC; PLATELET COUNT* 169 thou/uL (150-400); RBC 4.34 mil/uL (4.20-5.00); RDW-CV 15.2 % (10.5-14.5); WBC 8.9 thou/uL (4.0-11.0)
[2017-06-30 11:06] LABS: ALBUMIN 3.4 g/dL (3.4-5.0); CALCIUM 9.3 mg/dL (8.5-10.1); POTASSIUM 3.8 mmol/L (3.5-5.1); TOTAL BILIRUBIN 0.3 mg/dL (<0.1-1.0); TOTAL PROTEIN 6.7 g/dL (6.4-8.2)
[2017-06-30 11:17] LABS: ABSOLUTE EOSINOPHILS 0.1 thou/uL (0.0-0.7); ABSOLUTE LYMPHOCYTES 0.8 thou/uL (0.8-5.3); ABSOLUTE MONOCYTES 0.7 thou/uL (0.0-1.2); ABSOLUTE NEUTROPHILS 7.3 thou/uL (1.6-8.1); PLATELET ESTIMATE ADEQUATE
--- NOTE | 2017-06-30 11:24 | NUR ---
SW met with pt to discuss dc planning for today. Pt in agreement with plan for dc today to home and pt has ride home available. SW discussed orders for HH services and explained [facility] no longer in network with [employer]/pt insurance. Pt preference for either [facility] or [facility], either one who could accept referral and in network with her insurance. SW to arrange and fax orders and finalize safe dc plan.
[2017-06-30] MEDS ORDERED: PROTONIX40 M1 PO (11:43)
[2017-06-30] MEDS ORDERED: LEVAQUIN 500 M500 M2 PO (11:44)
[2017-06-30] MEDS ORDERED: PREDNISONE 10 M10 MG PO (11:45)
[2017-06-30] MEDS ORDERED: PROBIOTIC1 EAC1 PO (11:50)
--- NOTE | 2017-06-30 13:30 | NUR ---
PATIENT DISCHARGED TO HOME WITH HOME HEALTH. DISCHARGE PAPERS REVIEWED AND SIGNED. PRESCRIPTIONS AND INFORMATION SHEETS GIVEN. IV REMOVED. PATIENT DENIES ANY FURTHER NEEDS. PATIENT TAKEN BY WHEELCHAIR TO EXIT. LEFT WITH .
--- NOTE | 2017-06-30 13:47 | CON ---
[address] [address] CONSULTATION Name: DION RAMIREZ Room: [address] IN M.R.#: [id number] Admission: 06/23/17 Attend Phys: Mikael Guerin MD Discharge: 06/30/17 Date of : 63 Report #: [id number] THIS REPORT FOR: //name// CC: Mikael Guerin [facility] DATE OF SERVICE: 06/24/2017 CONSULTING PHYSICIAN: Mikael Guerin M.D. REASON FOR NEPHROLOGY CONSULTATION: Acute renal failure. CHIEF COMPLAINT OR REASON FOR ADMISSION: Unresponsiveness. HISTORY OF PRESENT ILLNESS: This is a 52-year-old female who has past medical history of seizures, her last seizure was about 1-1/2 years ago, on medications; history of chronic back pain; hypertension, recently started on a new medication and some other medical problems, but no history of any diabetes, was brought in by EMS when the patient was found unresponsive and gurgling. The patient had some frothing at the site of her mouth, and also, she was found to have some seizure-like activity here in the Emergency Room as well. I spoke to the patient's , Ed, and he reported that the patient was doing okay on Wednesday, but she went to see her primary care doctor, and her blood pressure was really high, systolic was in 200s, so she was started on a new blood pressure medication, which she took, and the next day morning, her blood pressure was very low in 80s systolic, and she did not feel good. She stopped taking the medication after speaking to her primary care doctor, but continued to feel bad and lethargic, and then yesterday morning, which was Wednesday morning, she was still feeling lethargic, and the patient's went out for a little bit and when he came back, she was still lethargic, and then, the patient's just heard a thud, and she had fallen to the floor, and she was not responsive, and she was having foaming from her mouth On arrival to the Emergency Room, she was found to have a creatinine of 3.9, CPK of 970. Her baseline creatinine is 1.0 in 12/2016. As per the patient's , the patient is not taking any NSAIDs, not taking any diuretics, not taking any lisinopril, but he cannot recall the name of the new medication she was started on Wednesday. As per the patient's , the patient was also not suicidal, and they were about to plan a vacation. Neurology has also been consulted for the patient. Right now, she is intubated on 35% FiO2 on ventilator, and she is making urine. She has made about 900 mL of urine in less than 24 hours. She has been receiving IV fluids also in the form of normal saline at 150 mL an hour. REVIEW OF SYSTEMS: The patient had seizure-like activity. She was found unresponsive. No diarrhea reported currently. Review of systems is limited right now because she is sedated, and [place] [address] CONSULTATION Name: DION RAMIREZ Room: [address] IN [place].#: [id number] Admission: 03/21/18 Attend Phys: Mikael Guerin MD Discharge: 06/30/17 Date of : 63 Report #: [id number] PAST MEDICAL HISTORY: That includes history of chronic back pain and hypertension, recently started on new medication. Anxiety and depression, hyperlipidemia, fibromyalgia. Also history of schizophrenia and seizures. PAST SURGICAL HISTORY: Which includes gallbladder surgery, appendectomy, sinus surgery, hysterectomy, bilateral knee surgery, herniated disk, back surgery surgery of the right foot. FAMILY HISTORY: Which is not relevant to the current situation. SOCIAL HISTORY: The patient lives with . The patient's reports that she does not take alcohol or use any drugs except for the narcotics, which she has been prescribed and does not use any recreational drugs. No smoking. ALLERGIES: TO SEVERAL THINGS INCLUDING BEES, BACITRACIN, COCONUT, CODEINE, INTERFERON, IRON, METRONIDAZOLE, NEOMYCIN, NUTS, PENICILLIN, POLYMYXIN B, SHELLFISH, SULFA, VANCOMYCIN, WASP STRINGS. HOME MEDICATIONS: These were all reviewed. The blood pressure medication which she was recently started on is not on home medication list, but the patient's will find that out for me PHYSICAL EXAMINATION: VITAL SIGNS: Blood pressure is actually 154/74, temperature 37.4 and pulse rate is 81, and respiration rate is 14 and she is on 35% FiO2 and her pulse ox is 100%. GENERAL: Currently, she is sedated and she is intubated. HEAD, EYES, EARS, NOSE AND THROAT: ET tube in place. NECK: No JVD. CHEST: Bilateral diminished breath sounds. No crackles or wheezing heard. CARDIOVASCULAR: S1, S2 normal. No murmurs. ABDOMEN: Obese, soft, nondistended, nontender. Bowel sounds are present, but diminished. LOWER EXTREMITIES: Symmetrical, no edema. NEUROLOGIC: Function cannot assess right now, she is sedated. SKIN: Warm and dry. LABORATORY DATA: From today 06/24/2017, hemoglobin 12.7. Sodium was 146, potassium was 4.5, creatinine was 4.7, BUN was 42, CO2 was 20. Other labs were reviewed. IMAGING: Renal ultrasound, head CT, chest x-ray, cervical spine CT, abdominal x-ray, they were all reviewed. ASSESSMENT AND PLAN: 1. Acute renal failure, which is likely because of mild [place] [address] CONSULTATION Name: DION RAMIREZN Room: [address]#: [id number] Admission: 06/23/17 Attend Phys: Mikael Guerin MD Discharge: 06/30/17 Date of : 63 Report #: [id number] intravascular volume depletion and probably leading to ischemic acute tubular necrosis and could be also medication induced. The patient was very hypotensive on Wednesday after starting on a new blood pressure medication regimen. She also has some intravascular volume depletion, evidence of high CPK. To continue with IV fluids, to keep a mean arterial pressure more than 70, try to find out what medication she was started on. Her creatinine is still going up, but there is no acute need for dialysis. Renal ultrasound does not show any acute abnormalities. Changing IV fluids to half normal saline at 150 mL an hour since her sodium is up to 146. Hopefully, her creatinine will start getting better soon. 2. Acute respiratory failure: The patient was also intubated more for prevention of aspiration because she was having seizures and also because she has abnormal mentation. Pulmonology is following the patient. 3. Altered mental status and seizures: Neurology is supposed to follow the patient for this. 4. Rhabdomyolysis: She has mildly elevated CPK. Continue with IV fluids and follow CPK tomorrow. 5. Hypernatremia: Change IV fluids to half normal saline at 150 mL an hour. 6. Anion gap metabolic acidosis: That is because of acute renal failure. No need for any bicarbonate replacement right now, but she might need that in the near future. Thank you for this consultation, and I will continue to follow along with you. I spent more than 35 minutes in the patient's critical care, and care was discussed with the patient's , the patient's RN as well as Dr. Guerin, and this time was spent in reviewing the patient's medications, old orders, her chart as well as examining the patient and her management. <ELECTRONICALLY SIGNED> By: Caitlin Butterfield MD 06/30/17 1347 0930 [id number] Butterfield MD /nt
--- NOTE | 2017-07-01 19:10 | EEG ---
[address] [address] EEG STUDY REPORT Name: DION RAMIREZ Room: [address] IN M.R.#: [id number] Admission: 06/23/17 Attend Phys: Mikael Guerin MD Discharge: 06/30/17 Date of : 63 Report #: [id number] THIS REPORT FOR: //name// CC: Mikael Andrews [place] DATE OF SERVICE: 06/24/2017 This patient is being evaluated for altered mental status. She has a prior history of seizure. EEG was done by placing the electrodes by standard 10-20 system of electrode placement. Both referential and sequential montages were used for recording. Background activity in this patient's EEG is about 7-8 Hz and 30 microvolts. Photic stimulation is unremarkable. The patient is sedated. IMPRESSION: This is an abnormal EEG because it is intermixed with theta range slowing on both sides. That is a nonspecific abnormality, which can occur with encephalopathy, effect of psychotropic medication, dementia, etc. Clinical correlation is recommended. <ELECTRONICALLY SIGNED> By: Rogelio Aguirre MD 07/01/17 1910 1022 [id number] Aguirre MD /nt
--- NOTE | 2017-07-01 19:10 | CON ---
[address] [address] CONSULTATION Name: DION RAMIREZN Room: [address] IN M.R.#: [id number] Admission: 06/23/17 Attend Phys: Mikael Guerin MD Discharge: 06/30/17 Date of : 63 Report #: [id number] THIS REPORT FOR: //name// CC: Mikael Andrews Trimble DATE OF SERVICE: 06/24/2017 HISTORY OF PRESENT ILLNESS: This is a 52-year-old female patient who was evaluated by me because of a complicated history. The patient is unable to provide any history. The is here, he provided some history. He indicates that this patient had some speech difficulty and she was slurring the words and the next thing he noticed that that this patient had a seizure. The patient was having some tonic clonic movement and then she fell down and then she became unresponsive. He indicates that this patient had seizures 1 year ago, but the history is not very clear in that regard. The patient is presently intubated and have numerous medical problems. She is being followed by numerous consultants. REVIEW OF SYSTEMS: Partly from the record and partly from the patient's activity. It looks like this patient was seen by Dr. Estrada and with a neurologist in 11/2016. From that history, it would appear that she had seizures even prior to that. From all indications, it looks like she is taking Keppra for some time. She has been seen by Nephrology in 2017 and she is being seen by Nephrology again. She has a history of back pain and taking multiple medications. She also has hypertension and is not very clear about the medications she has been taking and about her compliance. I carried out 14-point review of system from the record as well as the patient. She has a history of anxiety, depression, hyperlipidemia. One of the records indicate schizophrenia and seizures. She has multiple musculoskeletal problems and this was her relevant 14-point review of system. PAST MEDICAL HISTORY: Positive for seizures, but reviewing the record, I am not sure how established the diagnosis is and what the etiology of these seizures are. FAMILY HISTORY: Negative for epilepsy. SOCIAL HISTORY: She does not drink alcohol. PHYSICAL EXAMINATION: Pretty limited. She is unresponsive and sedated at the moment. She does not have any response except for mild movement on the right side. Her reflexes are un-elicitable. She has no meningeal sign. She is a heavy-set individual and further examination is not possible at the moment. She is intubated. She is on vent and she is on sedation. Her blood pressure is 154/74, temperature is 99.3. [place] [address] CONSULTATION Name: DION RAMIREZ Room: [address] IN M.R.#: [id number] Admission: 06/23/17 Attend Phys: Mikael Guerin MD Discharge: 06/30/17 Date of : 63 Report #: [id number] LABORATORY DATA: Indicate normal white count at 8.3. She does have sodium of 146 and GFR of 10. She has dyslipidemia. The last time it was checked was in 2017. She did have a CT scan of the head and C-spine and a CT of the head did not show any acute abnormality. IMPRESSION: Somewhat of a complicated and unusual history. I will get an EEG done to see if any active seizure activity is going on. She is on Topamax 150 mg and she is on Keppra 500 b.i.d. We can switch her to renal dose of Keppra or just leave her on the same dose of Keppra. I do not know why she had a speech difficulty either and whether she has any transient ischemic attack or whether that was related to her psychotropic medication and we will try to get a better examination once she is extubated. RECOMMENDATIONS: 1. We can continue the medication the way she was taking at home. 2. We will get an EEG done. 3. Depending upon that EEG, we will decide if we need to do anything different in this patient. Thank you very much for this referral. <ELECTRONICALLY SIGNED> By: Rogelio Aguirre MD 07/01/17 1910 1429 1542Pvaishali Aguirre MD /nt
== END 2017-06-30 13:30 | disposition home health service (06) | DRG 871 ==
LOC: M.ERS 13:34 → M.ICU 15:09 → M.TBA-ER 15:09 → M.ICU 16:00 → M.3W 06-27 09:42
PROVIDERS: Family Medicine; Internal Medicine; Internal Medicine Nephrology; Internal Medicine Pulmonary Disease; ADMIT Internal Medicine
PROC: 0BH17EZ Insertion of Endotracheal Airway into Trachea, Via Natural or Artificial Opening (ICD-10-PCS; principal; 2017-06-23)
PROC: 5A1945Z Respiratory Ventilation, 24-96 Consecutive Hours (ICD-10-PCS; principal; 2017-06-23)
PROC: 02HV33Z Insertion of Infusion Device into Superior Vena Cava, Percutaneous Approach (ICD-10-PCS; principal; 2017-06-23)
PROC: 5A09357 Assistance with Respiratory Ventilation, Less than 24 Consecutive Hours, Continuous Positive Airway Pressure (ICD-10-PCS; 2017-06-26)
PROC: 5A09357 Assistance with Respiratory Ventilation, Less than 24 Consecutive Hours, Continuous Positive Airway Pressure (ICD-10-PCS; 2017-06-27)
DX: A41.9 Sepsis, unspecified organism (principal); J69.0 Pneumonitis due to inhalation of food and vomit; J96.00 Acute respiratory failure, unspecified whether with hypoxia or hypercapnia; G93.40 Encephalopathy, unspecified; N17.0 Acute kidney failure with tubular necrosis; E87.0 Hyperosmolality and hypernatremia; E87.2 Acidosis; M62.82 Rhabdomyolysis; Z68.41 Body mass index [BMI] 40.0-44.9, adult; E86.0 Dehydration; I10 Essential (primary) hypertension; E78.00 Pure hypercholesterolemia, unspecified; F41.9 Anxiety disorder, unspecified; F32.9 Major depressive disorder, single episode, unspecified; M79.7 Fibromyalgia; F20.9 Schizophrenia, unspecified; F17.210 Nicotine dependence, cigarettes, uncomplicated; G40.909 Epilepsy, unspecified, not intractable, without status epilepticus; G89.29 Other chronic pain; M54.9 Dorsalgia, unspecified; E78.5 Hyperlipidemia, unspecified; E66.9 Obesity, unspecified; R94.01 Abnormal electroencephalogram [EEG]; J20.9 Acute bronchitis, unspecified; E83.39 Other disorders of phosphorus metabolism; Z79.899 Other long term (current) drug therapy; Z90.49 Acquired absence of other specified parts of digestive tract; Z90.710 Acquired absence of both cervix and uterus; Z79.82 Long term (current) use of aspirin; Z88.8 Allergy status to other drugs, medicaments and biological substances; Z88.2 Allergy status to sulfonamides; Z88.0 Allergy status to penicillin; Z88.6 Allergy status to analgesic agent; Z88.1 Allergy status to other antibiotic agents; Z91.018 Allergy to other foods

== ENCOUNTER 2018-05-08 14:27 | Inpatient (IN) | payer OTHER, MEDICAID ==
[~2018-05-08] VITALS: Ht 165.1 cm; Wt 111.7 kg
--- NOTE | ~2018-05-08 | EEG ---
[address] [address] EEG STUDY REPORT Name: DION RAMIREZ Room: [address] IN M.R.#: [id number] Admission: 05/08/18 Attend Phys: Felice Diallo Discharge: 05/10/18 Date of : 63 Report #: [id number] THIS REPORT FOR: //name// CC: Darryl Alicia DATE OF SERVICE: 05/10/2018 This patient is being evaluated for seizures. EEG was done by placing the electrode by standard 10-20 system of electrode placement. Both referential and sequential montages were used for recording. Background activity in this patient's EEG is about 8 Hz and 30 microvolts. She was sleeping most of the time. Photic stimulation is unremarkable. Throughout the record, no active epileptiform activity was noticed. IMPRESSION: The patient's EEG is intermixed with slowing on both sides. That is a nonspecific abnormality, which can occur with encephalopathy, effect of psychotropic medication, dementia, etc. Clinical correlation is recommended. By: 1520 [id number] Aguirre MD /nt
[~2018-05-08 14:27] MED LIST changes: +ALLEGRA ALLERG180 MG PO; +ARTIFICIAL TEA1 EACH OPHTHALMIC; +ASPIR 8181 MG PO; +COLESTIPOL HCL1 G1 PO; +CYMBALTA30 MG PO; +MAGOX 400400 MG PO; +OMEGA-31000 M1 PO; +PREDNISONE 10 M10 MG PO; +PROBIOTIC1 EAC1 PO; +PROTONIX40 M1 PO
[2018-05-08 14:30] VITALS: BP 125/68
[2018-05-08 14:58] LABS: ABSOLUTE BASOPHILS 0.1 thou/uL (0.0-0.2); ABSOLUTE EOSINOPHILS 0.1 thou/uL (0.0-0.7); ABSOLUTE LYMPHOCYTES 1.6 thou/uL (0.8-5.3); ABSOLUTE MONOCYTES 0.7 thou/uL (0.0-1.2); ABSOLUTE NEUTROPHILS 7.9 thou/uL (1.6-8.1); BASOPHILS 0.7 %; EOSINOPHILS 0.7 %; HEMATOCRIT 44.5 % (37.0-47.0); LYMPHOCYTES 15.2 %; MCH 32.1 pg (26.0-34.0); MCHC 33.8 g/dL (28.0-37.0); MCV 94.9 fL (80.0-100.0); MONOCYTES 6.6 %; MPV 9.1 fl. (7.2-11.1); NUCLEATED RBCS 0 /100WBC; PLATELET COUNT* 209 thou/uL (150-400); POLYS 76.8 %; RBC 4.69 mil/uL (4.20-5.00); RDW-CV 14.2 % (10.5-14.5); WBC 10.3 thou/uL (4.0-11.0)
--- NOTE | 2018-05-08 15:01 | NUR ---
PT IS REFUSING TPA. PLEASE SEE CODE STROKE PAPER CHARTING.
[2018-05-08 15:04] LABS: POC CA IONIZED 4.5 mg/dL (4.5-5.3); POC CREATININE 0.7 mg/dL (0.6-1.3); POC HEMOGLOBIN 15.3 g/dL (12.0-17.0); POC POTASSIUM 3.5 mmol/L (3.5-4.9)
[2018-05-08 15:05] LABS: ANION GAP 7 mmol/L (7-16); BUN 14 mg/dL (7-18); CALCIUM 9.4 mg/dL (8.5-10.1); CHLORIDE 104 mmol/L (98-107); CO2 28 mmol/L (21-32); GLUCOSE 103 mg/dL (70-99); POTASSIUM 3.5 mmol/L (3.5-5.1); SODIUM 139 mmol/L (136-145)
--- NOTE | 2018-05-08 15:05 | NUR ---
PT REPORTS THAT OVER THE LAST 6 MONTHS SHE HAS HAD THROAT NUMBNESS AND DIFFICULTY SWALLOWING. THE PATIENT REPORTS THESE SAME SYMPTOMS UPON SWALLOWING. PT REPORTS NO DIFFERENCE IN HER SWALLOWING ABILITY SHE HAS OVER THE LAST 6 MONTHS.
[2018-05-08 15:06] LABS: APTT 28.7 Seconds (25.0-31.3); INR 1.1; PROTIME 10.8 Seconds (9.20-11.50)
[2018-05-08 15:16] LABS: ALBUMIN 3.4 g/dL (3.4-5.0); ALKALINE PHOSPHATASE 157 U/L (46-116); NT-PRO BRAIN NAT PEPTIDE 50 pg/mL (<300); SGOT 34 U/L (15-37); SGPT 49 U/L (30-65); TOTAL BILIRUBIN 0.4 mg/dL (<0.1-1.0); TOTAL PROTEIN 7.5 g/dL (6.4-8.2); TROPONIN-I LEVEL <0.06 ng/mL (<0.06)
[2018-05-08 16:00] VITALS: BP 180/87
[2018-05-08 16:48] VITALS: BP 131/58
[2018-05-08 20:00] VITALS: BP 111/71
[2018-05-08] MEDS ORDERED: LIORESAL 10 MG10 MG PO (21:54)
[2018-05-08] MEDS ORDERED: OXYCODONE HCL15 MG PO (21:57)
[2018-05-09] VITALS: BP 167/68
[2018-05-09 04:00] VITALS: BP 106/58
--- NOTE | 2018-05-09 04:53 | NUR ---
Pt a/o x 4. RA. VSS. Some of pt's home meds given last night per pt request and per order of on-call physician. NPO at this time for scheduled tests today. Denies pain or any other discomfort. No apparent distress noted. Fall precautions maintained. Call light within reach. Will continue to monitor.
[2018-05-09 07:21] LABS: CALCIUM 9.1 mg/dL (8.5-10.1); CREATININE 1.1 mg/dL (0.6-1.3); POTASSIUM 3.9 mmol/L (3.5-5.1)
[2018-05-09 07:26] LABS: TOTAL BILIRUBIN 0.3 mg/dL (<0.1-1.0); TOTAL PROTEIN 6.7 g/dL (6.4-8.2)
--- NOTE | 2018-05-09 11:07 | EKG ---
[place] [address] ELECTROCARDIOGRAM REPORT Name: DION RAMIREZ MARLENY Room: [address] ADM IN .R.#: [id number] Admission: 05/08/18 Attend Phys: Felice Diallo Discharge: Date of : 63 Report #: [id number] THIS REPORT FOR: //name// [facility] ED Test Date: 2018-05-08 Test Time: 15:01:01 Pat Name: DION RAMIREZ Department: Room: [facility] Gender: F Digital Marketer: Telma UGALDE : 1965 Requested By: Catarino Shell Order Number: [id number] MD: Sheldon Hull Measurements Intervals [place] Rate: 64 P: 66 OK: 167 QRS: 66 QRSD: 122 T: 105 QT: 450 QTc: 465 Interpretive Statements Sinus rhythm Nonspecific intraventricular conduction delay Abnormal T, consider ischemia, lateral leads ST elev, probable normal early repol pattern Compared to ECG 06/23/2017 14:57:12 Intraventricular conduction delay now present Possible ischemia now present ST (T wave) deviation now present Electronically Signed On 05-09-2018 11:07:15 MODEL AND DYE PERSON by Sheldon Hull [email or web address] <ELECTRONICALLY SIGNED> By: Sheldon Hull MD, FACC 05/09/18 1107 1501 1501 Sheldon Hull MD, FAC /EPI
[2018-05-09 11:11] LABS: CHOLESTEROL 209 mg/dL (<200); HDL CHOLESTEROL 53 mg/dL (>40); LDL CHOLESTEROL 133 mg/dL (<100); TC:HDL 3.9 Ratio (Not establshd); TRIGLYCERIDE 115 mg/dL (<150); VLDL 23 mg/dL (<40)
[2018-05-09 11:16] LABS: SERUM ASSESSMENT Clear
[2018-05-09 12:00] VITALS: BP 132/79
--- NOTE | 2018-05-09 14:18 | NUR ---
Pt is A&O. Resides at home with her BF. Normally active and independent. Pt states that she has a walker and cane that she uses PRN. Pt has a cpap, does not know which agency provided it. Hx of [facility] and [facility]. No hx of SNF. Goal is home at dc, anticipate dc tomorrow.
--- NOTE | 2018-05-09 15:19 | CON ---
[facility] [address] [place] [address] CONSULTATION Name: JAMESDION ALEXISN Room: [address] ADM IN .R.#: [id number] Admission: 05/08/18 Attend Phys: Felice Diallo Discharge: Date of : 63 Report #: [id number] THIS REPORT FOR: //name// CC: Darryl Alicia DATE OF SERVICE: 05/09/2018 HISTORY OF PRESENT ILLNESS: This is a 53-year-old female patient who was interviewed. The patient's prior records were reviewed. The patient's record from present admission was reviewed. As I understand from the Emergency Room records and talking to them this patient had presented with stroke-like symptoms. The symptom was tingling and numbness on the left side of the body involving face, arm and lower extremity. Her NIH scale was 4. She was offered TPA, but she declined TPA. Review of the records indicate that her history is complicated. She apparently has a seizure disorder and she follows up with an epileptologist at [facility], Dr. Fuller. She says her seizures are reasonably controlled, but the last time she was here, it was because of the breakthrough seizures. She also has a history of migraine headaches. She indicates the migraine is better after she started getting Botox shot from a physician at [facility]. I reviewed the record at one time. She was also admitted with renal failure. She has a history of anxiety, depression, fibromyalgia, back surgery. One of the records says about schizophrenia, but she is not sure about that. She is on multiple medications. I am not sure why the seizures occurred because she indicates it occurred because there was interaction between 2 medications. REVIEW OF SYSTEMS: A 14-point review of systems was carried out and has history of gallbladder surgery, appendectomy, hysterectomy, sinus surgery, high blood pressure. She denies any new eye, ENT, cardiac, respiratory, , musculoskeletal, constitutional, dermatological, hematological, psychiatric, throat, allergic symptom associated with present symptomatology. She did have some nausea, vomiting and indicates her appetite has not been very good. PAST MEDICAL HISTORY: Positive for seizure and migraine. FAMILY HISTORY: Negative for early age stroke. SOCIAL HISTORY: She smokes, but does not drink any alcohol. PHYSICAL EXAMINATION: Indicate she is alert, responsive, able to follow simple and complex command. Her speech and concentration looks unremarkable. Cranial nerve examination 2-12 looks unremarkable. Neuromuscular examination is symmetrical. There is no cerebellar sign. There is no papilledema. There is no meningeal sign. There is no carotid bruit. [place] [address] CONSULTATION Name: DION RAMIREZ Room: [address] ADM IN .R.#: [id number] Admission: 05/08/18 Attend Phys: Felice Diallo Discharge: Date of : 63 Report #: [id number] individual who does appear to be overweight. She has no thyroid mass. Her pulses are palpable. She has no edema, cyanosis or jaundice. Cardiac examination is unremarkable. No respiratory difficulty or rhonchi was noticed. Blood pressure is 106/58, respiration is 18, pulse is 62, temperature is 97.8. LABORATORY DATA: Her white count is 10.3. Her BUN and creatinine was normal when she came in, but I reviewed the record and this patient had high creatinine when she was admitted last time and in fact, she was seen by Renal at that time. IMPRESSION: 1. Stroke-like symptoms, which appeared to have resolved. She does have some risk factor like smoking, high LDL last time it was checked and high cholesterol. She did undergo a CT angio of the head and neck and that was unremarkable. MRI was scheduled, but she indicates she is very claustrophobic and she became panicky even in the CAT scan and she does not think she can do an MRI. Therefore, I held it back. RECOMMENDATIONS: 1. I will get a carotid Doppler done. 2. We will repeat the lipid profile. 3. She is already on aspirin. 4. We will continue her seizure medication. 5. I will get an EEG because of history of seizures to make sure they were not nonconvulsive seizure. 6. Her BUN and creatinine was normal when she had CT angiogram down stair, but her BUN and creatinine has been high last year. Because of that, I repeated that. Creatinine is still okay at 1.1, but is higher than it was last time at 0.7, so I think it will be a good idea to continue fluids and monitor her in that regard and I did order some fluids and monitoring. 7. As far as seizures are concerned, we will continue with the same medication until the EEG shows something and we may have to do the MRI as an outpatient and depending upon her cholesterol we may have to start her on statin. Thank you very much for this referral and I discussed all of it with the patient in detail and she understands and want to proceed with this workup. <ELECTRONICALLY SIGNED> By: Rogelio Aguirre MD 05/09/18 1519 0859 0929Rogelio Aguirre MD /nt
--- NOTE | 2018-05-09 15:40 | NUR ---
PT OFF UNIT TO U/S THIS AM.
[2018-05-09 16:00] VITALS: BP 127/62
--- NOTE | 2018-05-09 16:12 | 2DMMODE ---
[place] [address] 2 D/M-MODE ECHOCARDIOGRAM Name: DION RAMIREZ Room: [address] IN .R.#: [id number] Admission: 05/08/18 Attend Phys: Darryl Alicia Discharge: Date of : 63 Date of Service: 05/09/18 1611 Report #: [id number] THIS REPORT FOR: //name// APPROVED REPORT Study performed: 05/09/2018 14:10:40 EXAM: Comprehensive 2D, Doppler, and color-flow Echocardiogram Patient Location: Bedside BSA: 2.14 HR: 61 bpm BP: 132/79 mmHg Other Information Study Quality: Fair Indications CVA/TIA Echo Enhancing Agent Indication: Rule out Shunt Agent(s) / Amount(s) Used: Agitated Saline cc 2D Dimensions IVSd: 11.88 (7-11mm) LVOT Diam: 17.51 (18-24mm) LVDd: 44.94 mm PWd: 11.24 (7-11mm) Ascending Ao: 25.65 (22-36mm) LVDs: 33.06 (25-40mm) Aortic Root: 28.86 mm Aortic Valve AoV Peak Cayetano.: 1.06 m/s AO Peak Gr.: 4.51 mmHg LVOT Max P.12 mmHg AO Mean Gr.: 2.24 mmHg LVOT Mean P.86 mmHg LVOT Max V: 1.01 m/s AO V2 VTI: 19.18 cm LVOT Mean V: 0.61 m/s NEVA (VTI): 2.35 cm2 LVOT V1 VTI: 18.71 cm Mitral Valve E/A Ratio: 1.22 MV Decel. Time: 223.77 ms MV E Max Cayetano.: 0.59 m/s MV PHT: 64.89 ms MVA (PHT): 3.39 [place] [address] 2 D/M-MODE ECHOCARDIOGRAM Name: DION RAMIREZN Room: [address] IN [facility]#: [id number] Admission: 05/08/18 Attend Phys: Darryl Alicia Discharge: Date of : 63 Date of Service: 05/09/18 1611 Report #: [id number] TDI E/Lateral E': 7.38 E/Medial E': 8.43 Medial E' Cayetano.: 0.07 m/s Lateral E' Cayetano.: 0.08 m/s Pulmonary Valve PV Peak Cayetano.: 1.14 m/s PV Peak Gr.: 5.21 mmHg Tricuspid Valve TR Peak Gr.: 21.12 mmHg Left Ventricle The left ventricle is normal size. There is normal LV segmental wall motion. Mild concentric left ventricular hypertrophy. Left ventricular systolic function is normal. The left ventricular ejection fraction is within the normal range. LVEF is 55-60%. The left ventricular diastolic function is normal. Right Ventricle The right ventricle is normal size. The right ventricular systolic function is normal. Atria The left atrium size is normal. Interatrial septum not well visualized. Unable to adequately rule out intracardiac shunt The right atrium size is normal. Aortic Valve The aortic valve is normal in structure. No aortic regurgitation is present. There is no aortic valvular stenosis. Mitral Valve The mitral valve is normal in structure. There is no mitral valve regurgitation noted. No evidence of mitral valve stenosis. Tricuspid Valve The tricuspid valve is normal in structure. Trace tricuspid regurgitation. Pulmonic Valve Pulmonic valve is not well visualized. There is no pulmonic [place] [address] 2 D/M-MODE ECHOCARDIOGRAM Name: DION RAMIREZ MARLENY Room: [address] IN [facility]#: [id number] Admission: 05/08/18 Attend Phys: Darryl Alicia Discharge: Date of : 63 Date of Service: 05/09/18 1611 Report #: [id number] Great Vessels The aortic root is normal in size. IVC is normal in size and collapses >50% with inspiration. Pericardium There is no pericardial effusion. <Conclusion> Mild concentric left ventricular hypertrophy. LVEF is 55-60%. Interatrial septum not well visualized. Unable to adequately rule out intracardiac shunt <ELECTRONICALLY SIGNED> By: Sheldon Hull MD, FACC 05/09/181610 10 10 Sheldon Hull MD, FACC /INF
--- NOTE | 2018-05-09 17:51 | NUR ---
PT AMBULATED HALLS WITH PT WELL TODAY. PT UP TO BATHROOM SEVERAL TIME AND TOLERATED DIET. PT GIVEN 500ML NS BOLUS TODAYA AND ON IS 1/2NS AT 125ML/HR. PT REFUSED MRI TODAYY.
[2018-05-09 19:06] LABS: CALCIUM 8.2 mg/dL (8.5-10.1); CREATININE 1.1 mg/dL (0.6-1.3); POTASSIUM 3.4 mmol/L (3.5-5.1)
[2018-05-09 20:00] VITALS: BP 114/60
[2018-05-09 21:34] LABS: CALCIUM 8.9 mg/dL (8.5-10.1); CREATININE 1.1 mg/dL (0.6-1.3); POTASSIUM 3.4 mmol/L (3.5-5.1)
[2018-05-09 22:53] LABS: HEMOGLOBIN 13.7 gm/dL (12.0-15.0)
[2018-05-10] VITALS: BP 105/58
[2018-05-10 04:00] VITALS: BP 110/60
[2018-05-10 05:34] LABS: HEMATOCRIT 37.5 % (37.0-47.0); HEMOGLOBIN 12.4 gm/dL (12.0-15.0); MCH 31.9 pg (26.0-34.0); MCV 96.8 fL (80.0-100.0); MPV 9.7 fl. (7.2-11.1); RBC 3.87 mil/uL (4.20-5.00); RDW-CV 14.3 % (10.5-14.5); WBC 6.3 thou/uL (4.0-11.0)
[2018-05-10 06:03] LABS: CALCIUM 8.6 mg/dL (8.5-10.1); CREATININE 1.1 mg/dL (0.6-1.3); MAGNESIUM 1.7 mg/dL (1.8-2.4); POTASSIUM 3.7 mmol/L (3.5-5.1)
--- NOTE | 2018-05-10 07:41 | NUR ---
ASSUMED PT CARE @1930. PT AWAKE AND ORIENTED X4. VSS. JUNIOR JAVA DEVELOPER IN PLACE TRACING SR. DENIES ANY PAIN NOR DISCOMFORT. CALL LIGHT WITHIN REACH. HOURLY ROUNDING DONE FOR PT SAFETY.
[2018-05-10 07:53] VITALS: BP 150/51
--- NOTE | 2018-05-10 08:26 | NUR ---
ASSUMED CARE OF PT THIS AM AROUND 0715- QUALITY INSPECTOR IN PLACE ORDERED, TRACING SR WITH PAC'S- UPON ASSESSMENT PT NOTED TO BE RESTING IN BED, WATCHING TV- PT A&O X4, FLAT AFFECT- CONTINENT OF BOWEL AND BLADDER- SBA WITH TRANSFERS- RUL NOTED WITH EXPIRATORY WHEEZING, CLEAR TO OTHERS- RESP EVEN AND UN-LABORED- VSS, O2 SAT 97% ON RA- ABD SOFT/ROUND/NON-TENDER, BS X4 QUADS- LAST BM REPORTED 05/09/18, [facility] PO INTAKE NOTED THIS AM WITH BREAKFAST- IV NOTED TO LEFT HAND INTACT, IVF INFUSSING PRESCIBED- [facility] IN PLACE INDICATED, 1 NOTED THIS AM R/T SLIGHT DRIFT TO LEFT LOWER EXT- CALL LIGHT AND PERSONAL BELONGINGS WITH IN REACH- HOURLY ROUNDS IN PLACE R/T SAFETY/NEEDS- PT MAKES NEEDS KNOWN- ALL NEEDS MET AT THIS TIME-WCTM
--- NOTE | 2018-05-10 08:47 | NUR ---
REHAB CONSULT ACKNOWLEDGED AND RECEIVED BY DR DYKES AND ORDER BOOKER. PER OT AND P.T. NOTES, NURSING NOTES AND MUSIC WRITERHOUSEKEEPING WORKER. CURRENT LEVEL OF FUNCTION, FOLLOWING DIAGNOSIS OF CVA, IS TOO HIGH FOR QUALIFYING REHAB STAY. RECOMMENDATIONS FOR HH OR OUTPATIENT THERAPY NEEDED. THANK YOU
[2018-05-10] MEDS ORDERED: ASA5UEC PO (10:49)
[2018-05-10] MEDS ORDERED: SIMVASTATIN80 MG PO (10:49)
[2018-05-10 11:26] VITALS: BP 150/51
[2018-05-10 11:42] LABS: URINE BILIRUBIN NEGATIVE (Negative); URINE BLOOD NEGATIVE (Negative); URINE CLARITY CLEAR; URINE COLOR YELLOW; URINE GLUCOSE-RANDOM NEGATIVE (Negative); URINE KETONES NEGATIVE (Negative); URINE LEUKOCYTES-REFLEX NEGATIVE (Negative); URINE NITRITE-REFLEX NEGATIVE (Negative); URINE PROTEIN NEGATIVE (Negative); URINE SPECIFIC GRAVITY 1.015 (1.005-1.030); URINE UROBILINOGEN 0.2 E.U./dl (0.2-1.0)
--- NOTE | 2018-05-10 12:09 | NUR ---
ORDERS RECIEVIED FOR OKAY TO D/C HOME THIS SHIFT PER WITH NO NEED TO AWAIT EEG RESULTS PRIOR TO D/C- D/C TEACHING/EDUCATION GIVEN TO PT PRIOR TO D/C WITH ALL QUESTIONS AND CONCERNS ADDRESSED PRIOR TO D/C- IV TO LEFT HAND D/C'D PRIOR TO D/C ALONG WITH NUTRITION SERVICES AIDE- MAG REMPLACED PER PROTOCOL PRIOR TO D/C THIS SHIFT- NEEDED FOLLOW UPS COMMUNICATED WITH VERBAL UNDERSTANDING RECIEVIED PER PT PRIOR TO D/C- BELONGINGS PACKED AND ACCOUNTED FOR PER PT AND - PT ESCORTED PER TECH VIA W/C WITH BELONGINGS; AT SIDE TO VEHICLE AT 1206- NO PROBLEMS TO NOTE AT TIME OF D/C
== END 2018-05-10 12:06 | disposition home or self-care (01) | DRG 69 ==
LOC: M.ERS 14:27 → M.TBA-ER 15:10 → M.2W 15:10
PROVIDERS: Emergency Medicine Emergency Medical Services; Internal Medicine; Psychiatry & Neurology Neuromuscular Medicine; ADMIT Internal Medicine
DX: G45.9 Transient cerebral ischemic attack, unspecified (principal); I10 Essential (primary) hypertension; E78.00 Pure hypercholesterolemia, unspecified; F41.9 Anxiety disorder, unspecified; F32.9 Major depressive disorder, single episode, unspecified; M79.7 Fibromyalgia; F17.210 Nicotine dependence, cigarettes, uncomplicated; G43.909 Migraine, unspecified, not intractable, without status migrainosus; F20.9 Schizophrenia, unspecified; G40.909 Epilepsy, unspecified, not intractable, without status epilepticus; Z79.899 Other long term (current) drug therapy; Z79.82 Long term (current) use of aspirin; Z88.0 Allergy status to penicillin; Z88.2 Allergy status to sulfonamides; Z88.7 Allergy status to serum and vaccine; Z88.8 Allergy status to other drugs, medicaments and biological substances; Z91.030 Bee allergy status; Z88.5 Allergy status to narcotic agent; Z91.018 Allergy to other foods; Z88.1 Allergy status to other antibiotic agents; Z90.49 Acquired absence of other specified parts of digestive tract; Z90.710 Acquired absence of both cervix and uterus; Z79.51 Long term (current) use of inhaled steroids; Z79.2 Long term (current) use of antibiotics

== ENCOUNTER → 2018-08-30 | Outpatient (CLI) | payer OTHER, MEDICAID ==
[~2018-08-30] MED LIST changes: +ASA5UEC PO; +SIMVASTATIN80 MG PO
== END ==
LOC: M.ULTRA 08-22 14:50
DX: N93.9 Abnormal uterine and vaginal bleeding, unspecified (principal); Z90.710 Acquired absence of both cervix and uterus

== ENCOUNTER 2018-09-09 09:58 | Inpatient (IN) | payer OTHER, MEDICAID ==
[~2018-09-09] VITALS: Ht 165.1 cm; Wt 115.4 kg
[2018-09-09 10:04] VITALS: BP 156/78
[2018-09-09] MEDS ORDERED: RESTASIS1 EACH OPHTHALMIC (10:22)
[2018-09-09] MEDS ORDERED: PROVIGIL 200 M200 MG PO (10:22)
[2018-09-09 10:29] LABS: ABSOLUTE BASOPHILS 0.1 thou/uL (0.0-0.2); ABSOLUTE EOSINOPHILS 0.1 thou/uL (0.0-0.7); ABSOLUTE LYMPHOCYTES 1.1 thou/uL (0.8-5.3); ABSOLUTE MONOCYTES 0.5 thou/uL (0.0-1.2); ABSOLUTE NEUTROPHILS 5.5 thou/uL (1.6-8.1); BASOPHILS 1.1 %; EOSINOPHILS 1.1 %; HEMATOCRIT 41.8 % (37.0-47.0); HEMOGLOBIN 13.8 gm/dL (12.0-15.0); LYMPHOCYTES 15.5 %; MCH 30.8 pg (26.0-34.0); MCHC 33.1 g/dL (28.0-37.0); MONOCYTES 6.3 %; MPV 8.5 fl. (7.2-11.1); NUCLEATED RBCS 0 /100WBC; PLATELET COUNT* 197 thou/uL (150-400); RBC 4.49 mil/uL (4.20-5.00); RDW-CV 14.9 % (10.5-14.5); WBC 7.2 thou/uL (4.0-11.0)
[2018-09-09 10:39] LABS: ANION GAP 10 mmol/L (7-16); BUN 17 mg/dL (7-18); CALCIUM 8.8 mg/dL (8.5-10.1); CHLORIDE 108 mmol/L (98-107); CO2 23 mmol/L (21-32); CREATININE 0.9 mg/dL (0.6-1.3); GLUCOSE 98 mg/dL (70-99); POTASSIUM 4.2 mmol/L (3.5-5.1); SODIUM 141 mmol/L (136-145)
[2018-09-09 10:40] LABS: APTT 28.1 Seconds (25.0-31.3); PROTIME 10.5 Seconds (9.20-11.50)
[2018-09-09 10:50] LABS: ALBUMIN 3.3 g/dL (3.4-5.0); ALKALINE PHOSPHATASE 129 U/L (46-116); NT-PRO BRAIN NAT PEPTIDE 41 pg/mL (<300); SGOT 24 U/L (15-37); SGPT 24 U/L (30-65); TOTAL BILIRUBIN 0.3 mg/dL (<0.1-1.0); TOTAL PROTEIN 7.5 g/dL (6.4-8.2); TROPONIN-I LEVEL <0.06 ng/mL (<0.06)
--- NOTE | 2018-09-09 16:34 | EKG ---
[place] [address] ELECTROCARDIOGRAM REPORT Name: JAMESDION LYNN Room: [place] [address] ADM IN ..#: [id number] Admission: 09/09/18 Attend Phys: Felice Diallo Discharge: Date of : 63 Report #: [id number] THIS REPORT FOR: //name// [facility] ED Test Date: 2018-09-09 Test Time: 10:11:55 Pat Name: DION RAMIREZ Department: Room: [facility] Gender: F Mental Health Coordinator: ANDREW : 1965 Requested By: Shailesh Garcia Order Number: [id number] MD: Sheldon Hull Measurements Intervals [place] Rate: 81 P: 57 MI: 50 QRS: 40 QRSD: 109 T: 88 QT: 397 QTc: 461 Interpretive Statements Sinus rhythm Short MI interval Borderline T wave abnormalities Artifact in lead(s) II,III,aVF,V1,V2,V3 Compared to ECG 05/08/2018 15:01:01 ST (T wave) deviation no longer present T-wave abnormality still present Electronically Signed On 09-09-2018 16:34:01 CDT by Sheldon Hull [email or web address] <ELECTRONICALLY SIGNED> By: Sheldon Hull MD, [facility] 09/09/18 1634 1011 1011 Sheldon Hull MD, [facility] /EPI
--- NOTE | 2018-09-09 16:39 | EKG ---
[place] [address] ELECTROCARDIOGRAM REPORT Name: DION RAMIREZ Room: [place] [address] ADM IN ..#: [id number] Admission: 09/09/18 Attend Phys: Felice Diallo Discharge: Date of : 63 Report #: [id number] THIS REPORT FOR: //name// [facility] ED Test Date: 2018-09-09 Test Time: 12:01:01 Pat Name: DION RAMIREZ Department: Room: [facility] Gender: F Drapery Installer: ANDREW : 1965 Requested By: Shailesh Garcia Order Number: [id number] MD: Sheldon Hull Measurements Intervals [place] Rate: 70 P: 27 MA: 161 QRS: 35 QRSD: 105 T: 103 QT: 423 QTc: 457 Interpretive Statements Sinus rhythm Nonspecific T abnormalities, lateral leads Electronically Signed On 09-09-2018 16:39:37 CDT by Sheldon Hull [email or web address] <ELECTRONICALLY SIGNED> By: Sheldon Hull MD, [facility] 09/09/18 1639 1201 1201 Sheldon Hull MD, FACC /EPI
[2018-09-09 20:14] VITALS: BP 127/69
[2018-09-09 21:15] VITALS: BP 141/73
[2018-09-10] VITALS: BP 117/78
--- NOTE | 2018-09-10 01:23 | NUR ---
PT ARRIVED TO 2 E AT 2019. LETHARGIC. DIFFICULT TO AROUSE. NOT ABLE TO STAY AWAKE. ADMISSION CHARTING DONE OFF OLD CHART. UNABLE TO TAKE HS MEDICATIONS DUE TO ALERTNESS. DR SALEEM NOTIFIED OF PT CONDITION. NO ORDERS RECIEVED. VSS. PT MUCH MORE ALERT AT MN. AWAKE AND ANSWERING QUESTIONS. TELEMETRY SHOWS SR. NPO FOR CARDIOLOGY CONSULT.
[2018-09-10 04:00] VITALS: BP 140/86
[2018-09-10 08:00] VITALS: BP 138/76
--- NOTE | 2018-09-10 10:27 | NUR ---
5788 ASSUMED CARE OF PATIENT. PLEASE SEE DOCUMENTED ASSESSMENT. PT IS ALERT AND UPSET THAT SHE DOES NOT HAVE A DIET ORDER AND HER MEDICATIONS. STATES SHE WILL HAVE SEIZURES AND DIARRHEA WITHOUT THEM. CURRENT ORDER IS NPO. MESSAGE SENT TO CARDIOLOGY.NSR
--- NOTE | 2018-09-10 10:41 | NUR ---
DR WELLS WILL SEE PATIENT BUT PER ROUNDING NURSE PATIENT DOES NOT NEED TO FOLLOW UP WITH CARDIOLOGY ON DISCHARGE
[2018-09-10 11:39] VITALS: BP 147/77
[2018-09-10 12:58] VITALS: BP 147/77
[2018-09-10] MEDS ORDERED: LOPRESSOR50 PO (13:34)
--- NOTE | 2018-09-10 14:19 | NUR ---
DISCHARGE EDUCATION DONE. IV REMOVED. TELE PACK OFF.
--- NOTE | 2018-09-11 16:34 | CON ---
[address] [address] CONSULTATION Name: DION RAMIREZ Room: [address] M.R.#: [id number] Admission: 09/09/18 Attend Phys: Felice Diallo Discharge: 09/10/18 Date of : 63 Report #: [id number] THIS REPORT FOR: //name// CC: Farhana Alicia DATE OF SERVICE: 09/09/2018 CARDIOLOGY CONSULTATION HISTORY OF PRESENT ILLNESS: This is a 53-year-old single white female who I was asked to see in the hospital today after she was noted to have elevated blood pressure. The patient has an extensive and complicated past medical history. She states that she has had a history of mitral valve prolapse since she was young. She apparently had a heart catheterization after an abnormal stress test in [facility] in the past showed no significant coronary artery disease. She was actually admitted here to [facility] in May with a TIA with some blurred vision. She was told to increase aspirin from 81 to 325 a day and placed on a statin drug. She states because of low blood pressure, she was actually taken off of blood pressure medications in the past. She has a history of migraine headaches and today was having a headache and took her blood pressure and it was elevated. She was brought to the Emergency Room and admitted. She denies any significant chest pain or shortness of breath. She does have occasional episodes when her heart rate will increase. PAST MEDICAL HISTORY: She has had previous rectal prolapse surgery, appendectomy, cholecystectomy, hysterectomy. She has a history of hyperlipidemia. She has a history of schizophrenia and a seizure disorder. She has chronic back pain. MEDICATIONS: On admission consists of albuterol nebulizer, Synthroid, topiramate, Keppra, Monet, colestipol, baclofen, oxycodone, eye drops. ALLERGIES: She has previous intolerance to BACTRIM, CODEINE, IRON and NEOMYCIN. FAMILY HISTORY: Her father had bypass surgery. SOCIAL HISTORY: She is , lives in [place], [place]. She is not working at this time. Smokes half pack of cigarettes a day. No alcohol abuse, no illicit drug use. REVIEW OF SYSTEMS: She has a history of COPD. She has had hepatitis C, treated in the past. She has had chronic kidney disease. She has depression, saw a psychiatrist. [place] [address] CONSULTATION Name: DION RAMIREZ Room: [address]#: [id number] Admission: 09/09/18 Attend Phys: Felice Diallo Discharge: 09/10/18 Date of : 63 Report #: [id number] PHYSICAL EXAMINATION: GENERAL: Revealed a middle-aged obese female lying in bed. She appeared in no acute distress. VITAL SIGNS: She had a blood pressure 140/70, pulse is 80. She is afebrile. HEENT: She was anicteric, conjunctivae pink. Mucous membranes moist. NECK: Veins were difficult to assess due to obesity. No carotid bruits. Neck supple. CHEST: Clear to auscultation. CARDIOVASCULAR: Regular rate and rhythm without murmur. ABDOMEN: Obese. EXTREMITIES: Had no pitting edema. Dorsalis pedis pulses 2+ bilaterally. SKIN: Warm and dry. NEUROLOGIC: Nonfocal. LABORATORY DATA: Her ECG showed a sinus rhythm, nonspecific T-wave changes. Her workup, she actually had an echocardiogram in May which showed ejection fraction of 60%, no shunt. X-rays, she had a CT scan of the head today that showed no acute abnormality. Chest x-ray today showed no acute abnormality. Carotid Doppler study in May showed moderate plaque, no high grade stenosis. Her lab work, sodium 141, BUN 17 and creatinine 0.9. Liver function studies are normal. Troponin 0.07. BNP 41. Lipid profile in May, cholesterol 209, triglycerides 115, HDL 53 and LDL 133. TSH in May was 2.0. White blood cell count 7.2 and hemoglobin 13.8. IMPRESSION AND RECOMMENDATIONS: 1. Hypertension. The patient will be taken off of medications in the past because of low blood pressure. At this time, I would recommend starting back on blood pressure medications. Because of her headaches, I would consider giving the patient beta ascencion. 2. Previous transient ischemic attack. The patient is on an aspirin a day. 3. Hyperlipidemia. The patient is on a statin drug. 4. Moderate carotid stenosis. The patient followed by a vascular surgeon. 5. History of hepatitis C. 6. History of depression. The patient followed by a psychiatrist. 7. Chronic back pain. The patient is on narcotics. 8. Tobacco abuse. <ELECTRONICALLY SIGNED> By: Sheldon Hull MD, FACC 09/11/18 [id number] Hull MD, FACC /nt
== END 2018-09-10 14:25 | disposition home or self-care (01) | DRG 313 ==
LOC: M.ERS 09:58 → M.TBA-ER 12:37 → M.2W 20:20
PROVIDERS: Nurse Practitioner Psychiatric/Mental Health; ADMIT Internal Medicine
DX: R07.89 Other chest pain (principal); I25.10 Atherosclerotic heart disease of native coronary artery without angina pectoris; I10 Essential (primary) hypertension; E78.00 Pure hypercholesterolemia, unspecified; F20.9 Schizophrenia, unspecified; F32.9 Major depressive disorder, single episode, unspecified; F17.210 Nicotine dependence, cigarettes, uncomplicated; G40.909 Epilepsy, unspecified, not intractable, without status epilepticus; M79.602 Pain in left arm; F41.9 Anxiety disorder, unspecified; G89.29 Other chronic pain; M54.9 Dorsalgia, unspecified; I65.29 Occlusion and stenosis of unspecified carotid artery; E78.5 Hyperlipidemia, unspecified; G43.909 Migraine, unspecified, not intractable, without status migrainosus; M79.7 Fibromyalgia; Z86.73 Personal history of transient ischemic attack (TIA), and cerebral infarction without residual deficits; Z86.14 Personal history of Methicillin resistant Staphylococcus aureus infection; Z90.49 Acquired absence of other specified parts of digestive tract; Z90.710 Acquired absence of both cervix and uterus; I25.2 Old myocardial infarction; Z88.0 Allergy status to penicillin; Z88.5 Allergy status to narcotic agent; Z88.1 Allergy status to other antibiotic agents; Z91.030 Bee allergy status; Z91.018 Allergy to other foods; Z91.013 Allergy to seafood; Z79.82 Long term (current) use of aspirin; Z86.19 Personal history of other infectious and parasitic diseases

== ENCOUNTER → 2018-10-20 | Outpatient (CLI) | payer OTHER, MEDICAID ==
[~2018-10-20] MED LIST changes: +LOPRESSOR50 PO; +PROVIGIL 200 M200 MG PO; +RESTASIS1 EACH OPHTHALMIC
== END ==
LOC: M.CT 12:41
DX: T84.84XA Pain due to internal orthopedic prosthetic devices, implants and grafts, initial encounter (principal); M25.462 Effusion, left knee; M67.864 Other specified disorders of tendon, left knee; M62.89 Other specified disorders of muscle; Z96.652 Presence of left artificial knee joint; W19.XXXA Unspecified fall, initial encounter; Y93.89 Activity, other specified; Y92.89 Other specified places as the place of occurrence of the external cause; Y99.8 Other external cause status

== ENCOUNTER 2018-10-27 07:39 | Emergency (ER) | payer OTHER, MEDICAID ==
[~2018-10-27] VITALS: Ht 165.1 cm; Wt 117.0 kg
[2018-10-27] MEDS ORDERED: ROBAXIN500 MG PO (07:55)
[2018-10-27 10:00] VITALS: BP 133/61
== END 2018-10-27 10:00 | disposition home or self-care (01) ==
LOC: M.ERS 07:39
DX: M79.10 Myalgia, unspecified site (principal); M54.2 Cervicalgia; M25.512 Pain in left shoulder; E78.00 Pure hypercholesterolemia, unspecified; F41.9 Anxiety disorder, unspecified; F32.9 Major depressive disorder, single episode, unspecified; F20.9 Schizophrenia, unspecified; I25.2 Old myocardial infarction; F17.210 Nicotine dependence, cigarettes, uncomplicated; Z86.73 Personal history of transient ischemic attack (TIA), and cerebral infarction without residual deficits; Z79.899 Other long term (current) drug therapy; Z88.2 Allergy status to sulfonamides; Z88.0 Allergy status to penicillin; Z91.030 Bee allergy status; Z91.018 Allergy to other foods; Z88.6 Allergy status to analgesic agent; Z91.013 Allergy to seafood; Z88.8 Allergy status to other drugs, medicaments and biological substances; Z90.79 Acquired absence of other genital organ(s); Z90.710 Acquired absence of both cervix and uterus

== ENCOUNTER 2018-11-04 14:36 | Emergency (ER) | payer OTHER, MEDICAID ==
[~2018-11-04] VITALS: Ht 165.1 cm; Wt 113.4 kg
[~2018-11-04 14:36] MED LIST changes: +ROBAXIN500 MG PO
[2018-11-04] MEDS ORDERED: MEDROLDOSEPACK PO (16:59)
[2018-11-04 17:13] VITALS: BP 107/66
== END 2018-11-04 17:14 | disposition home or self-care (01) ==
LOC: M.ERS 14:36
DX: S16.1XXA Strain of muscle, fascia and tendon at neck level, initial encounter (principal); F17.210 Nicotine dependence, cigarettes, uncomplicated; E78.00 Pure hypercholesterolemia, unspecified; F41.9 Anxiety disorder, unspecified; F32.9 Major depressive disorder, single episode, unspecified; M79.7 Fibromyalgia; F20.9 Schizophrenia, unspecified; Z91.030 Bee allergy status; Z88.1 Allergy status to other antibiotic agents; Z91.018 Allergy to other foods; Z88.5 Allergy status to narcotic agent; Z91.048 Other nonmedicinal substance allergy status; Z88.0 Allergy status to penicillin; Z88.2 Allergy status to sulfonamides; Z91.013 Allergy to seafood; Z90.49 Acquired absence of other specified parts of digestive tract; Z90.710 Acquired absence of both cervix and uterus; Z86.73 Personal history of transient ischemic attack (TIA), and cerebral infarction without residual deficits; X50.1XXA Overexertion from prolonged static or awkward postures, initial encounter; Y92.89 Other specified places as the place of occurrence of the external cause; Y93.89 Activity, other specified; Y99.8 Other external cause status

== ENCOUNTER 2019-02-20 15:09 | Emergency (ER) | payer OTHER, MEDICAID ==
[~2019-02-20] VITALS: Ht 165.1 cm; Wt 113.4 kg
[2019-02-20] MEDS ORDERED: ELIQUIS5 MG PO (15:16)
[2019-02-20 15:58] LABS: ABSOLUTE BASOPHILS 0.1 thou/uL (0.0-0.2); ABSOLUTE EOSINOPHILS 0.1 thou/uL (0.0-0.7); ABSOLUTE LYMPHOCYTES 0.9 thou/uL (0.8-5.3); ABSOLUTE MONOCYTES 0.5 thou/uL (0.0-1.2); ABSOLUTE NEUTROPHILS 7.5 thou/uL (1.6-8.1); BASOPHILS 0.8 %; EOSINOPHILS 0.8 %; HEMATOCRIT 35.4 % (37.0-47.0); HEMOGLOBIN 11.9 gm/dL (12.0-15.0); LYMPHOCYTES 9.6 %; MCH 32.2 pg (26.0-34.0); MCHC 33.6 g/dL (28.0-37.0); MCV 95.9 fL (80.0-100.0); MONOCYTES 5.8 %; MPV 8.4 fl. (7.2-11.1); NUCLEATED RBCS 0 /100WBC; PLATELET COUNT* 328 thou/uL (150-400); RBC 3.69 mil/uL (4.20-5.00); RDW-CV 16.3 % (10.5-14.5); WBC 9.1 thou/uL (4.0-11.0)
[2019-02-20 16:07] LABS: POTASSIUM 3.9 mmol/L (3.5-5.1)
[2019-02-20 16:17] LABS: TOTAL BILIRUBIN 0.1 mg/dL (<0.1-1.0); TOTAL PROTEIN 7.8 g/dL (6.4-8.2)
[2019-02-20 17:19] LABS: ESR (SEDRATE) 80 mm/hr (0-30)
[2019-02-20] MEDS ORDERED: PERCOCET PO (18:17)
[2019-02-20 18:54] VITALS: BP 139/53
== END 2019-02-20 18:56 | disposition home or self-care (01) ==
LOC: M.ERS 15:09
PROVIDERS: Physician Assistant
DX: M25.562 Pain in left knee (principal); E78.00 Pure hypercholesterolemia, unspecified; F41.9 Anxiety disorder, unspecified; F32.9 Major depressive disorder, single episode, unspecified; M79.7 Fibromyalgia; F20.9 Schizophrenia, unspecified; F17.210 Nicotine dependence, cigarettes, uncomplicated; Z86.73 Personal history of transient ischemic attack (TIA), and cerebral infarction without residual deficits; Z88.1 Allergy status to other antibiotic agents; Z91.030 Bee allergy status; Z91.041 Radiographic dye allergy status; Z88.0 Allergy status to penicillin; Z86.14 Personal history of Methicillin resistant Staphylococcus aureus infection; Z88.2 Allergy status to sulfonamides; Z88.8 Allergy status to other drugs, medicaments and biological substances; Z91.018 Allergy to other foods; Z90.49 Acquired absence of other specified parts of digestive tract; Z90.710 Acquired absence of both cervix and uterus; Z88.5 Allergy status to narcotic agent

== ENCOUNTER 2019-10-15 15:19 | Emergency (ER) | payer OTHER, MEDICAID ==
[~2019-10-15] VITALS: Ht 165.1 cm; Wt 122.5 kg
[~2019-10-15 15:19] MED LIST changes: +ELIQUIS5 MG PO; +PERCOCET PO
[2019-10-15 16:20] VITALS: BP 97/50
== END 2019-10-15 16:21 | disposition home or self-care (01) ==
LOC: M.ERS 15:19
DX: M54.2 Cervicalgia (principal); E78.00 Pure hypercholesterolemia, unspecified; M79.7 Fibromyalgia; F17.210 Nicotine dependence, cigarettes, uncomplicated; Z90.710 Acquired absence of both cervix and uterus; Z86.73 Personal history of transient ischemic attack (TIA), and cerebral infarction without residual deficits; Z90.49 Acquired absence of other specified parts of digestive tract; Z91.030 Bee allergy status; Z91.018 Allergy to other foods; Z88.0 Allergy status to penicillin; Z88.1 Allergy status to other antibiotic agents; Z88.2 Allergy status to sulfonamides; Z88.6 Allergy status to analgesic agent; Z88.8 Allergy status to other drugs, medicaments and biological substances

== ENCOUNTER 2019-10-26 15:23 | Emergency (ER) | payer OTHER, MEDICAID ==
[~2019-10-26] VITALS: Ht 165.1 cm; Wt 122.5 kg
[2019-10-26] MEDS ORDERED: MEDROLDOSEPACK PO (15:52)
[2019-10-26 16:31] VITALS: BP 138/78
== END 2019-10-26 16:32 | disposition home or self-care (01) ==
LOC: M.ERS 15:23
DX: S16.1XXA Strain of muscle, fascia and tendon at neck level, initial encounter (principal); E78.00 Pure hypercholesterolemia, unspecified; M79.7 Fibromyalgia; F41.9 Anxiety disorder, unspecified; F32.9 Major depressive disorder, single episode, unspecified; F20.9 Schizophrenia, unspecified; F17.210 Nicotine dependence, cigarettes, uncomplicated; Z90.49 Acquired absence of other specified parts of digestive tract; Z90.710 Acquired absence of both cervix and uterus; Z86.73 Personal history of transient ischemic attack (TIA), and cerebral infarction without residual deficits; Z91.018 Allergy to other foods; Z91.013 Allergy to seafood; Z91.030 Bee allergy status; Z88.1 Allergy status to other antibiotic agents; Z88.2 Allergy status to sulfonamides; Z88.6 Allergy status to analgesic agent; Z88.8 Allergy status to other drugs, medicaments and biological substances; X58.XXXA Exposure to other specified factors, initial encounter; Y93.89 Activity, other specified; Y92.89 Other specified places as the place of occurrence of the external cause; Y99.8 Other external cause status

== ENCOUNTER → 2021-02-06 | Outpatient (CLI) | payer OTHER, MEDICAID | LOC: M.RAD 01-28 15:12 → M.CT 07:37 | PROVIDERS: ATTEND Nurse Practitioner Family | DX: S82.892A Other fracture of left lower leg, initial encounter for closed fracture (principal); M85.88 Other specified disorders of bone density and structure, other site; J44.1 Chronic obstructive pulmonary disease with (acute) exacerbation; Z87.891 Personal history of nicotine dependence; X58.XXXA Exposure to other specified factors, initial encounter; Y93.89 Activity, other specified; Y92.89 Other specified places as the place of occurrence of the external cause; Y99.8 Other external cause status ==

== ENCOUNTER 2021-04-11 18:55 | Emergency (ER) | payer OTHER, MEDICAID ==
[~2021-04-11] VITALS: Ht 165.1 cm; Wt 134.3 kg
[2021-04-11 20:51] LABS: INFLUENZA A ANTIGEN Negative (Negative); INFLUENZA B ANTIGEN Negative (Negative)
[2021-04-11 20:53] VITALS: BP 148/60
== END 2021-04-11 20:53 | disposition home or self-care (01) ==
LOC: M.ERS 18:55
PROVIDERS: Emergency Medicine
DX: U07.1 COVID-19 (principal); I10 Essential (primary) hypertension; E78.00 Pure hypercholesterolemia, unspecified; F41.9 Anxiety disorder, unspecified; F32.9 Major depressive disorder, single episode, unspecified; M79.7 Fibromyalgia; F20.9 Schizophrenia, unspecified; I25.2 Old myocardial infarction; F17.210 Nicotine dependence, cigarettes, uncomplicated; Z86.73 Personal history of transient ischemic attack (TIA), and cerebral infarction without residual deficits; Z90.49 Acquired absence of other specified parts of digestive tract; Z90.710 Acquired absence of both cervix and uterus; Z98.890 Other specified postprocedural states; Z79.899 Other long term (current) drug therapy; Z91.030 Bee allergy status; Z88.1 Allergy status to other antibiotic agents; Z91.018 Allergy to other foods; Z88.5 Allergy status to narcotic agent; Z91.048 Other nonmedicinal substance allergy status; Z88.0 Allergy status to penicillin; Z91.013 Allergy to seafood; Z88.2 Allergy status to sulfonamides